=== PATIENT | female | born 1980 | race Caucasian/White ===

== ENCOUNTER 2024-02-18 12:05 | Inpatient (IN) | payer BC, SELFPAY ==
[2024-02-13 09:34] VITALS: BMI 30.6
[2024-02-18] VITALS (17 sets, daily range): BP systolic 100–135; BP diastolic 64–108; PULSE 71–103; RESP 12–26; TEMP 35.7–36.6; O2SAT 94–100; BMI 29.6; BMI 32.1
[2024-02-18] MEDS: SCOPOLAMINE 1 PATCH TOP (06:52)
[2024-02-18] MEDS: LACTATED RINGERS 1,000 ML 42 ML IV ×3 (06:54→11:05)
--- NOTE | 2024-02-18 07:45 | PM.PREOP ---
Pre-operative Note Interval Note History & Physical reviewed/Exam performed by Physician: Yes Changes to H&P: No
[2024-02-18] MEDS: CEFAZOLIN 2 GM/100 ML PREMIX 100 ML IV ×3 (08:00→23:13)
--- NOTE | 2024-02-18 08:15 | SUR.OPER ---
Prone on spine table, head in foam head support, padded chest and pelvic supports, gel pad at knees, lower legs supported by pillows; nipples, genitalia and toes free of pressure, arms secured on foam padded arm boards at <90 degrees abduction. Tape over blanket at lower legs secured to table.
[2024-02-18] MEDS: BUPIVACAINE 0.25% W/ EPI (PF) 10 ML VIAL 30 ML INJ (08:26)
--- NOTE | 2024-02-18 10:03 | DI.RAD.S_ITS ---
PROCEDURE: XR LUMBAR SPINE 2-3V INDICATIONS: L4-5 TLIF TECHNIQUE: Intraoperative fluoroscopic spot films COMPARISON: None. FINDINGS: Bones: Low resolution intraoperative fluoroscopic spot film shows L4 discectomy instrumentation in good position Soft tissues: Overlying bowel gas pattern is normal. No suspicious soft tissue calcifications. IMPRESSION: Fluoroscopic guidance Approved by: Eyal De La Cruz M.D. on 02/18/2024 at 11:27
[2024-02-18] MEDS: BUPIVACAINE LIPOSOME 266 MG/20 ML VIAL INJ (10:05)
--- NOTE | 2024-02-18 10:12 | P.OP_ITS ---
Operative Date/Time/Diagnoses Date of procedure: 02/18/24 Time of procedure: 07:40 Pre-op diagnosis: 1. L4-5 spondylolisthesis 2. L4-5, L5-S1 spinal stenosis with radiculopathy Post-op diagnosis: same Procedure & Clinicians Procedure: 1. L4-5 Postero-lateral and posterior interbody fusion 2. L4-5 interbody cage placement. 3. L4-5 decompressive laminectomy with bilateral facetecomies 4. L4-5 Posterior non-segmental instrumentation 5. L5-S1 hemilaminectomy 6. [place] of bone marrow from iliac crest 7. Utilization of microsurgical technique and operating microscope 8. Utilization of robotic assisted navigation Same procedure as scheduled: Yes Indications: Patient has been having chronic back pain and worsening lumbar radiculopathy. Patient was found have significant spondylosis with foraminal stenosis and spondylolisthesis at L4-5, spinal stenosis at L5-S1 correlating with her symptoms. Patient failed multiple conservative management with worsening pain weakness and numbness in her lower extremity. Patient has been having difficulty performing activity of daily living. After discussing risks benefits of treatment options, patient elected proceed with surgery. Surgeon: Balwinder Velasquez Hand Grinder: Lennox Amos Click Yes if Unassisted: No Anesthesia Type: General Operative Notes Closure Type: primary Specimen(s): none sent Prosthetic devices, grafts, tissues, transplants, or devices: Globus CREO MIS screws, Rise cage Estimated Blood Loss (mL): 50 Blood products transfused: none Procedure in detail: Patient was seen in the preoperative area. Risks and benefits of the surgery was discussed with the patient. Informed consent was obtained from the patient and placed in the chart. Surgical site was marked. Patient was taken to the operative room. General anesthesia was administered. Prophylactic antibiotic was given to the patient less than 30 min before the incision was made. Patient was placed into a prone position on the [place] table. Patient's back was then prepped and draped in the sterile fashion. Time-out was performed at this time. After patient was prepped and draped, patient's PSIS was palpated and marked bilaterally. Small 1 cm incision was made over the PSIS for placement of the reference probes. Two trocar was placed into the PSIS 1 on each side. The reference probe was attached to the trocar of the reference apparatus. At this time the C-arm imaging was used to confirm AP and lateral of L4-5 vertebrae and merged the C-arm imaging using the varinode robotic navigation system with the CT of the lumbar spine. After successful merging was completed and confirmed, skin marker was used to sohail out the skin incision using the varinode robotic arm. Bilateral incision was made at this time. Pre templated trajectory was used and guided using the varinode robotic navigation system for bilateral L4-5 pedicle screw placement. This was done by using the robotic arm to guide the high-speed bur to make a cortical entry point. Next a drill was placed also using the robotic arm and guided using the navigation system drilling partially through bilateral L4 and L5 pedicles. Next L4-5 pedicle screws it was pre templated and measured was placed onto the power furniture delivery driver and inserted into the pedicles bilaterally. After all 4 screws were placed C-arm imaging was taken of both AP and lateral to confirm the placement. Excellent placement of the screws were confirmed and a matched precisely with the pre planned screw placement using the navigation system. MARs retractor was inserted using Rivalfoxivation guidence. Globus MARS retractors was placed inside the incision and docked onto the L4 lamina. Using microsurgical technique and operating microscope, a L4 laminectomy and L4-5 facetectomy was performed using a [place] rongeur. Patient was found have severe lateral recess and neural foramen stenosis which was fully decompressed after the laminectomy facetectomy. More than 75% of the facets were removed during the process of decompression rendering L4-5 level grossly unstable and required a fusion procedure at the same time. The disc space at L4-5 was identified, and a total diskectomy was performed at L4-5 level. The endplates were decorticated using a rasp and shaver. The total diskectomy and decortication was performed at L4-5 level in order to to accomplish a L4-5 fusion. The local bone from the laminectomy and facetectomy was saved for local bone grafting. After the total diskectomy and decortication was completed, Viacel bone graft material was combined with local bone that was harvested earlier. At this time, a separate skin is incision was made over the iliac crest. A Jamshidi needle was inserted into the iliac crest through a separate skin incision. 5 cc of bone marrow aspiration was obtained through the separate skin incision using a Jamshidi needle from the iliac crest. The bone marrow aspiration was combined with local bone and the Viacel bone grafting material. The bone grafting material was placed into the L4-5 interbody space along with a expandable cage. The cage was expanded to its maximum height using the torque limiting screwdriver. The disc preparation as well as the cage insertion were also performed under navigation guidance. After the cage was placed, AP and lateral C-arm imaging was taken to confirm placement of the cage and excellent position was confirmed. Globus MARS retractor was inserted and docked onto the L4-5 posterolateral gutter on the right side. Using the power drill, posterior-lateral decortication was performed at L4-5 level until bleeding cortical bone was identified. The remaining bone grafting material was placed into the L4-5 posterior lateral gutter he order to accomplish posterolateral fusion at the L4- 5 level. MARS retractor was then redirected towards the L5-S1 level. Using microsurgical technique and operating microscope, L5-S1 hemilaminectomy was performed by removing the L5 lamina as well as the ligamentum flavum at the site of the hemilaminectomy. At this time the tulips were attached to the L4-5 pedicle screw shanks. After measuring the length of the rods, they were inserted into the tulips of the pedicle screws and locked in place using locking caps and torque limiting screwdriver bilaterally. Total 4 caps and 2 titanium rods was used in order to complete the posterior instrumentation construct. After all the hardware was placed, and confirmed with AP and lateral C-arm imaging, the wound was then irrigated with sterile normal saline and packed with Ray-Riky gauze for 3 min to accomplish hemostasis. After the gauze was removed the deep fascia was closed with #1 Vicryl suture. The subcutaneous layer was closed with 2-0 Vicryl. The skin was closed with skin lucila. Patient tolerated the procedure well. There were no complications. Neuro monitoring system was used to monitor patient's neurologic status throughout entire procedure. There was no disturbance of the neural monitoring signals throughout the case. The Operation could not have been safely performed without compromising the technical result or length of the procedure, without the assistance of a skilled surgical corsetier. The surgical corsetier was medically necessary for proper positioning, retraction and manipulation of instruments, proper exposure, surgical preparation, and manipulation of tissue. Complications: none Post-operative Condition: stable Disposition: PACU Plan for aftercare: Admit to inpatient hospital
[2024-02-18] MEDS: LORazepam 2 MG/ML INJ 0.5 MG IV ×2 (10:34→10:46)
[2024-02-18] MEDS: hydrOXYzine 50 MG/ML INJ 25 MG IM (10:38)
[2024-02-18] MEDS: fentaNYL 100 MCG/2 ML INJ 50 MCG IV ×2 (10:42→10:56)
[2024-02-18] MEDS: OXYCODONE IR 5 MG TABLET PO ×2 (10:45→11:04)
[2024-02-18] MEDS: HYDROMORPHONE 1 MG INJ IV ×3 (10:56→18:15)
[2024-02-18] MEDS: ACETAMINOPHEN IV 1,000 MG/100 ML VIAL 400 MG IV (10:58)
--- NOTE | 2024-02-18 11:10 | SUR.PHASEI ---
Addendum entered by Bettye Tay R.N. 02/18/24 12:06: 1145 - Patient resting peacefully on right side with eyes closed and even, unlabored breathing. Appears much more relaxed. Awakens appropriately and states pain is 10/10, but quickly falls back asleep when left alone. Original Note: PACU - Patient arrived to pacu resting peacefully, when waking patient began writhing in bed and crying. Stated pain was 10/10 every time asked. Anesthesia at bedside. Medicated per emar and anesthesiologist verbal orders. 1111 - Assisted to side with pillow between legs. Ice pack applied to back. Patient's behavior shows some pain relief, but states it is still 10/10. Patient calming and able to rest with eyes closed and even, regular breathing periodically. vital signs stable. Assisting with purewhick placement as patient states she needs to urinate. Anesthesia back at bedside (Dr. Lobo administered dose of precedex (see anesthesia documentation))
[2024-02-18] MEDS: HYDROMORPHONE 0.5 MG INJ IV ×2 (12:26→14:37)
[2024-02-18] MEDS: LACTATED RINGERS 1,000 ML 125 ML IV ×2 (12:26→16:28)
[2024-02-18] MEDS: OXYCODONE IR 10 MG TABLET PO ×4 (13:51→23:14)
[2024-02-18] MEDS: ACETAMINOPHEN 325 MG TABLET 650 MG PO ×2 (13:51→20:04)
[2024-02-18] MEDS: GABAPENTIN 300 MG CAPSULE PO ×2 (14:37→20:07)
--- NOTE | 2024-02-18 16:07 | PT-IP ANOTE ---
PT eval order received. EMR reviewed. checked with nurse and stated that pt had already taken pain meds but still c/o pain. ok for PT to work with. checked with pt and refused PT. stated that she just started getting comfortable and does not want to move or get up. pt pt agreed to do PT tomorrow.
[2024-02-18] MEDS: TIZANIDINE 4 MG TABLET 2 MG PO ×2 (16:55→23:14)
[2024-02-18] MEDS: PROGESTERONE, MICRONIZED 100 MG CAPSULE PO (16:56)
--- NOTE | 2024-02-18 18:57 | PC.NURSE ---
Day shift: Patient came up from PACU rating her pain 11/10. Crying and moaning with any movement. Then patient would promptly fall back asleep. Gave 10mg oxycodone + IV dilaudid this afternoon. Patient OOB with 1PA to [facility] to void. OOB x3 this shift. Patient states that this is extremely painful and cries, shakes and yells while ambulating. She has 4/5 strength in BLEs, no numbness or tingling, CMS +. Notified MINDY Amos regarding patient consistently rating her pain 10+ while awake. He ordered 1mg IV dilaudid. This made patient nauseous and she had small emesis after dinner. Patient had a few episodes of her oxygen de-sating while sleeping. Easily arousable and instructed her to take some deep breaths. With 2L NC while sleeping, patient's sats stayed above 93 percent. At 1830, patient resting comfortably in bed watching TV and rating her pain 5/10.
[2024-02-18] MEDS: DOCUSATE 100 MG CAPSULE PO (20:06)
[2024-02-18] MEDS: clonazePAM 0.5 MG TABLET 1 MG PO (20:07)
[2024-02-18] MEDS: SENNOSIDES 8.6 MG TABLET 17.2 MG PO (20:07)
[2024-02-18] MEDS: hydrOXYzine HCL 25 MG TABLET 50 MG PO (20:08)
[2024-02-18] MEDS: ZOLPIDEM 5 MG TABLET 10 MG PO (23:13)
[2024-02-18] MEDS: ONDANSETRON 4 MG ODT SL (23:13)
[2024-02-19 04:30] LABS: Add Manual Diff / Slide Review NO; Basophils Absolute Auto 0 /uL (0-100); Basophils Percent Auto 0.2 % (0-2); Eosinophils Absolute Auto 0 /uL (0-450); Hematocrit 34.1 % (36-46); Hemoglobin 11.7 g/dL (12.0-16.0); Lymphocytes Absolute Auto 2100 /uL (1100-4500); Lymphocytes Percent Auto 17.7 % (25-40); Mean Corpuscular HGB Conc 34.4 % (30-36); Mean Corpuscular Hemoglobin 30.5 PG (26-34); Mean Corpuscular Volume 88.7 fL (80-100); Monocytes Absolute Auto 1000 /uL (0-900); Monocytes Percent Auto 8.4 % (3-14); Neutrophils Absolute Auto 8700 /uL (1500-7000); Neutrophils Percent Auto 73.7 % (50-75); Platelet Count 282 X10^3/uL (150-400); Red Blood Cell Count 3.84 X10^6/uL (4.0-5.2); Red Cell Distribution Width 13.9 % (11.6-14.8); White Blood Cell Count 11.8 X10^3/uL (4.5-11.0)
[2024-02-19] MEDS: ACETAMINOPHEN 325 MG TABLET 650 MG PO ×2 (07:03→14:51)
[2024-02-19] MEDS: OXYCODONE IR 10 MG TABLET PO ×5 (07:04→20:36)
[2024-02-19] MEDS: hydrOXYzine HCL 25 MG TABLET 50 MG PO ×3 (07:04→20:36)
[2024-02-19] MEDS: clonazePAM 0.5 MG TABLET 1 MG PO ×2 (08:08→20:36)
[2024-02-19] MEDS: estradioL 1 MG TABLET PO (08:09)
[2024-02-19] MEDS: HYDROMORPHONE 0.5 MG INJ IV ×4 (08:09→21:57)
[2024-02-19] MEDS: ONDANSETRON 4 MG ODT SL (08:09)
[2024-02-19] MEDS: TIZANIDINE 4 MG TABLET 2 MG PO ×3 (08:09→21:57)
[2024-02-19] MEDS: DOCUSATE 100 MG CAPSULE PO ×2 (08:09→20:41)
[2024-02-19] MEDS: GABAPENTIN 300 MG CAPSULE PO ×3 (08:09→20:37)
[2024-02-19 09:35] VITALS: BP 98/51; PULSE 89; RESP 15; TEMP 36.6; O2SAT 98
--- NOTE | 2024-02-19 11:00 | PT.IIE ---
Current Diagnoses Spondylolisthesis, lumbar region (02/18/24) Spinal stenosis, lumbar region without neurogenic claudication (02/18/24) Surgery Performed Operation Date: 02/18/24 07:45 Actual Procedures p L4-5 TLIF, L5-S1 Hemilaminectomy - Balwinder Velasquez MD Surgical History (Last Updated 02/13/24 @ 10:06 by Dedra Velazquez, RN) H/O: hysterectomy History of appendectomy Hx of cholecystectomy Medical History (Last Updated 02/13/24 @ 10:24 by Dedra Velazquez, RN) Anxiety and depression Fibromyalgia History of PCOS Interstitial cystitis Physical Therapy Inpatient Evaluation/Re-Eval M1 PT/OT-IP Prior Functional Status Start: 02/19/24 07:40 Freq: NEEDED Status: Active Protocol: Document 02/19/24 10:46 MB (Rec: 02/19/24 10:59 MB [id number]) Medical Review Prior Functional Status Medical History Reviewed Yes Diet/Fluid Consistency Regular Communication WNLs Mobility and Gait I Activities of Daily Living and IADL's I, states her helped her wash her hair Social History Household Members spouse Living Arrangements House Number of Floors (Floors) Two Floors Number of Stairs To Enter/Railing? 5-6 steps to enter home without rail; bedroom is on second floor and can stay on main floor if needed Home Environment Tub/Shower Home Equipment Four Wheel Walker,Straight Cane Additional Social History Comment Pt states she cannot work d/t pain She has low toilet and gets OOB to her right M2 PT-IP Current Condition Start: 02/19/24 07:40 Freq: NEEDED Status: Active Protocol: Document 02/19/24 10:46 MB (Rec: 02/19/24 10:59 MB [id number]) Physical Therapy Current Condition Current Condition Evaluation Date 02/19/24 Treatment Diagnosis L4-5 TLIF M3 PT-IP Subjective Start: 02/19/24 07:40 Freq: NEEDED Status: Active Protocol: Document 02/19/24 10:46 MB (Rec: 02/19/24 10:59 MB [id number]) Subjective Physical Therapy Visit Type Type Initial Evaluation Visit Start Time 10:10 Visit Stop Time 10:40 Number of LICENSING AND REGISTRATION DIRECTOR Visits 0 Physical Therapy Visit Comments Patient Comments Pt reports high pain and that she is afraid of getting OOB. Therapy Pain Assessment Pain When Pain Assessed During Mobility Pain Present Pain Present Pain Reported Location low back Intensity 10 Scale Used Numeric (0 - 10) Pain Behaviors Crying Pain Management Techniques Apply Cold,Distraction, Modification of Treatment,Re- positioning,Timing of Activity with Medications M4 PT-IP Mobility and Gait Start: 02/19/24 07:40 Freq: NEEDED Status: Active Protocol: Document 02/19/24 10:46 MB (Rec: 02/19/24 10:59 MB [id number]) PT-Bed Mobility Assessment Rolling Type of Rolling Log Rolling,Roll to Right Level of Assist Standby Assistance Supine to Sit Supine to Sit Standby Assistance,1 Person Assistance,Bedrails Scooting Scooting to Edge of Bed Standby Assistance Scooting Up and Down in Bed Standby Assistance PT-Transfer Assessment Sit to and From Stand Sit to and from Stand Contact Guard Assistance,1 Person Assistance,Use of Upper Extremities Equipment Transfer Assistive Device Gait Belt,Front Wheeled Walker ,4 Wheeled Walker Orthotic/Prosthetic Devices or Brace: No Transfers Transfer Destination Bed,Toilet Transfer Technique Ambulation Transfer Ability Level of Assist Contact Guard Assistance,1 Person Assistance,Use of Upper Extremities Comments Mobility Comments Pt crying throughout mobility, ed pt in back precautions and log rolling and then she is able to perform with increased time, encouragement and tearfulness Gait Assessment Gait Gait Assistance Required: Contact Guard Assist Distance (Feet) 15 Able to Maintain Weight Bearing Status Yes During Gait Assistive Devices Assistive Device Gait Belt,Front Wheeled Walker Orthotic/Prosthetic Devices or Brace: No Gait Deviations General Gait Pattern Antalgic,Decreased Stride Length,Step-to Gait,Wide Based Gait Factors Limiting Gait Function Factors Limiting Gait Function Decreased Sensation,Limited Range of Motion,Pain,Poor Safety Awareness Comments Gait Comments Tried using pt's rollator and it is old, has old tape on wheels and moves quickly, switched to RW in room. Pt gait trains slowly and with ongoing crying and c/o pain: 15'x1 to toilet and 10'x1 to chair. Cues for hand placement with transfers and occ cues for moving walker with gait, set-up assist for hygiene after urination. PT-Balance Assessment Sitting Balance and Reactions Static Sitting Balance Ability Good Dynamic Sitting Balance Ability Fair Standing Balance and Reactions Static Standing Balance Ability Fair Dynamic Standing Balance Ability Fair Device Used RW M5 PT-IP Objective Assessments Start: 02/19/24 07:40 Freq: NEEDED Status: Active Protocol: Document 02/19/24 10:46 MB (Rec: 02/19/24 10:59 MB [id number]) Orientation Orientation/Cognition Level of Alertness Alert Orientation Name,Age,Birthday,Month,Date, Year,Day of Week,Place, Situation Language Function Ability No Deficits Noted Safety Awareness Decreased Safety Awareness Memory Description No Deficits Noted Gross Range of Motion Upper Extremity ROM Impairments Defer to OT Lower Extremity ROM Assessment Within Functional Limits Strength Comments Strength Comments Pt does not tolerate formal range or MMT and so functionally observed only and no deficits noted Coordination Assessment Assessment Coordination Comments Pt does not tolerate LE coordination testing today Sensation Assessment Comments Sensation Comments Reports of ongoing mild paresthesias in right leg Muscle Tone Muscle Tone WNL Yes M6 PT-IP Treatment Start: 02/19/24 07:40 Freq: NEEDED Status: Active Protocol: Document 02/19/24 10:46 MB (Rec: 02/19/24 10:59 MB [id number]) Physical Therapy Treatment Education Education Provided Precautions,Post-Op Packet, Safety Other Treatments Other Treatment Performed Ed in log rolling and short stepping with RW with turning, ed pt on use of incentive spirometer and gentle nasal breathing to help with pain management M7 PT-IP Assessment and Plan Start: 02/19/24 07:40 Freq: NEEDED Status: Active Protocol: Document 02/19/24 10:46 MB (Rec: 02/19/24 10:59 MB [id number]) PT Summary Assessment and Plan Potential Rehabilitation Potential Fair Status of Condition at Evaluation Evolving Summary Impairments Pain,ROM,Strength,Balance, Coordination,Bed Mobility, Transfers,Gait,Activity Tolerance Progress Towards Goals Slow Progress due to Pain Assessment Summary Pt is a 43 y/o female presenting POD1 L4-5 TLIF and her pain is poorly controlled. She reports 6/10 pain at rest and 10/10 pain with mobility despite getting pain medications and IV Dilaudid during treatment. Pt with heavy crying throughout all mobility and 20' of PT. Pt does perform all mobility tasks slowly with PT ongoing cues and encouragement despite tearfulness and high pain. She is currently CGA status. to assist at home, per her report. Stair training when pain managed enough that pt can leave the room without loud crying. Goals Bed Mobility Goal Independent Transfer Goal Independent,Front Wheeled Walker,Four Wheeled Walker Gait Goal Independent,Front Wheel Walker ,Four Wheel Walker Gait Distance 100 Other Goals Pt will ascend and descend 5 steps with cane and REVENUE TAX SPECIALIST to allow safe home entrance. Days to Meet Goals 3 Frequency of Treatment Frequency Of Treatment Twice a Day Treatment Plan Physical Therapy Treatment Plan Bed Mobility Training,Transfer Training,Gait Training, Therapeutic Exercise,Balance Retraining,Post Op Education, Discharge Planning,Hot or Cold Pack,Neuromuscular Re-ed, Coordination Retraining,Manual Therapy Precautions Lumbar Precautions Log Roll,No Twisting,Limit Bending,Lifting Restriction of 10 lbs,Gait Belt above Incisional Area Recommendations To Nursing Amount of Assist Needed 1 Person Assist Discharge Recommendations PT Discharge Recommendations Home with 16/12 Assist Available Transportation Needs at Discharge Private Vehicle,Wheelchair/ Cabulance
--- NOTE | 2024-02-19 12:27 | P.PN_ITS ---
Subjective Subjective Date Patient Seen: 02/19/24 Time Patient Seen: 12:27 Interval history: Patient states she is having difficulty getting pain under control. She is worked with physical therapy and was difficult for. She has been able to ambulate small distances to the bedside commode and to the bathroom. She did not feel ready the go home today. Pain is localized along the incision site. No new numbness or tingling. No nausea vomiting fevers or chills. Exam Vital Signs (past 8 hours): - 02/19/24 09:35 Temperature 97.9 F Pulse Rate 89 Respiratory Rate 15 Blood Pressure 98/51 L Pulse Oximetry 98 Oxygen Delivery Method Nasal Cannula Oxygen Flow Rate 0 Narrative Exam Narrative: pt found sitting in bed having lunch. She appears to be uncomfortable, shifting in bed. SCDs around. Able to dorsiflex and plantar flex against resistance bilateral ankles. Sensation intact to light touch of the lower extremities. Resp Effort & Inspection: normal respiratory effort and able to speak in complete sentences Objective Labs 02/19/24 04:07 Labs: Laboratory Results - last 24 hr 02/19/24 04:07 WBC 11.8 H RBC 3.84 L Hgb 11.7 L Hct 34.1 L MCV 88.7 MCH 30.5 MCHC 34.4 RDW 13.9 Plt Count 282 Neut % (Auto) 73.7 Lymph % (Auto) 17.7 L [place] % (Auto) 8.4 Eos % (Auto) 0.0 L Baso % (Auto) 0.2 Neut # (Auto) 8700 H Lymph # (Auto) 2100 [place] # (Auto) 1000 H Eos # (Auto) 0 Baso # (Auto) 0 PFSH Medical History (Updated 02/13/24 @ 10:24 by Dedra Velazquez RN) Anxiety and depression History of PCOS Interstitial cystitis Fibromyalgia Surgical History (Updated 02/13/24 @ 10:06 by Dedra Velazquez RN) Hx of cholecystectomy History of appendectomy H/O: hysterectomy Social History household members: spouse Smoking Status: Never smoker alcohol intake: current Assessment & Plan Post-op Postoperative Procedures: Procedures Operation Date: 02/18/24 07:45 Actual Procedure Side Surgeon p L4-5 TLIF, L5-S1 Hemilaminectomy Balwinder Velasquez MD Postoperative day: 1 Postoperative status: marginal pain control Postoperative plan: routine post-op care and ambulate Postoperative plan narrative: Ambulate with physical therapy. Multimodal pain control. SCDs on while resting for DVT prevention. Re-evaluate tomorrow to see if she is a candidate for discharge to home. Time Spent With Patient Time with patient: less than 15 minutes Quality VTE Deep Vein Thrombosis/Pulmonary Embolism Present on Admission: No
--- NOTE | 2024-02-19 14:49 | PT.IPTN ---
Current Diagnoses Spondylolisthesis, lumbar region (02/18/24) Spinal stenosis, lumbar region without neurogenic claudication (02/18/24) Surgery Performed Operation Date: 02/18/24 07:45 Actual Procedures p L4-5 TLIF, L5-S1 Hemilaminectomy - Balwinder Velasquez MD Physical Therapy Treatment Note M2 PT-IP Current Condition Start: 02/19/24 07:40 Freq: NEEDED Status: Active Protocol: Document 02/19/24 10:46 MB (Rec: 02/19/24 10:59 MB [id number]) Physical Therapy Current Condition Current Condition Evaluation Date 02/19/24 Treatment Diagnosis L4-5 TLIF M3 PT-IP Subjective Start: 02/19/24 07:40 Freq: NEEDED Status: Active Protocol: Document 02/19/24 15:21 TS (Rec: 02/19/24 15:39 TS [id number]) Subjective Physical Therapy Visit Type Type Treatment Note Visit Start Time 14:49 Visit Stop Time 15:20 Number of [employer] Visits 1 Physical Therapy Visit Comments Patient Comments Pt found resting in bed, reports high pain, she is agreeable to PT. Therapy Pain Assessment Pain When Pain Assessed During Mobility Pain Present Pain Present Pain Reported M4 PT-IP Mobility and Gait Start: 02/19/24 07:40 Freq: NEEDED Status: Active Protocol: Document 02/19/24 15:21 TS (Rec: 02/19/24 15:39 TS [id number]) PT-Bed Mobility Assessment Rolling Type of Rolling Log Rolling,Roll to Right Level of Assist Standby Assistance Supine to Sit Supine to Sit Standby Assistance,1 Person Assistance,Bedrails Sit to Supine Sit to Supine Contact Guard Assistance Scooting Scooting to Edge of Bed Standby Assistance Scooting Up and Down in Bed Standby Assistance PT-Transfer Assessment Sit to and From Stand Sit to and from Stand Contact Guard Assistance,1 Person Assistance,Use of Upper Extremities Equipment Transfer Assistive Device Gait Belt,4 Wheeled Walker Orthotic/Prosthetic Devices or Brace: No Comments Mobility Comments Pt continues to cry due to pain throughout all mobility. She performs bed mobility SBA with good recall of her precautions. Caregiver training initiated. Spouse dons gait belt prior to mobility. STS with FWW CGA, pt calls out in pain. She ambulates ~20' in the room with 4WW CGA. Pt sat on toilet and performs own pericare with spouse assist. She ambulates back to the bed. Sit to supine into bed Milagros with cues for sequencing. Pt was left in the bed, all needs met . Gait Assessment Gait Gait Assistance Required: Minimum Assistance Distance (Feet) 20 Able to Maintain Weight Bearing Status Yes During Gait Assistive Devices Assistive Device Gait Belt,Front Wheeled Walker Orthotic/Prosthetic Devices or Brace: No Gait Deviations General Gait Pattern Antalgic,Decreased Stride Length,Step-to Gait,Wide Based Gait Factors Limiting Gait Function Factors Limiting Gait Function Decreased Sensation,Limited Range of Motion,Pain,Poor Safety Awareness PT-Balance Assessment Sitting Balance and Reactions Static Sitting Balance Ability Good Dynamic Sitting Balance Ability Fair Standing Balance and Reactions Static Standing Balance Ability Fair Dynamic Standing Balance Ability Fair Device Used FWW M5 PT-IP Objective Assessments Start: 02/19/24 07:40 Freq: NEEDED Status: Active Protocol: Document 02/19/24 10:46 MB (Rec: 02/19/24 10:59 MB [id number]) Orientation Orientation/Cognition Level of Alertness Alert Orientation Name,Age,Birthday,Month,Date, Year,Day of Week,Place, Situation Language Function Ability No Deficits Noted Safety Awareness Decreased Safety Awareness Memory Description No Deficits Noted Gross Range of Motion Upper Extremity ROM Impairments Defer to OT Lower Extremity ROM Assessment Within Functional Limits Strength Comments Strength Comments Pt does not tolerate formal range or MMT and so functionally observed only and no deficits noted Coordination Assessment Assessment Coordination Comments Pt does not tolerate LE coordination testing today Sensation Assessment Comments Sensation Comments Reports of ongoing mild paresthesias in right leg Muscle Tone Muscle Tone WNL Yes M6 PT-IP Treatment Start: 02/19/24 07:40 Freq: NEEDED Status: Active Protocol: Document 02/19/24 15:21 TS (Rec: 02/19/24 15:39 TS [id number]) Physical Therapy Treatment Education Education Provided Precautions,Post-Op Packet, Safety Other Treatments Other Treatment Performed Ed in log rolling and short stepping with RW with turning, ed pt on use of incentive spirometer and gentle nasal breathing to help with pain management M7 PT-IP Assessment and Plan Start: 02/19/24 07:40 Freq: NEEDED Status: Active Protocol: Document 02/19/24 15:21 TS (Rec: 02/19/24 15:39 TS [id number]) PT Summary Assessment and Plan Potential Rehabilitation Potential Fair Summary Impairments Pain,ROM,Strength,Balance, Coordination,Bed Mobility, Transfers,Gait,Activity Tolerance Progress Towards Goals Slow Progress due to Pain Assessment Summary Annabella continues to be limited in her mobility by pain. She is SBA/CGA for bed mobility. She ambulates short distances in the room with use of 4WW. She has severe pain with all mobility and calls out. She has 5 steps to get into the house in the fron. She will need to complete stair training to safely get into the house. PT is recommending Home vs SNF. Goals Bed Mobility Goal Independent Transfer Goal Independent,Front Wheeled Walker,Four Wheeled Walker Gait Goal Independent,Front Wheel Walker ,Four Wheel Walker Gait Distance 100 Other Goals Pt will ascend and descend 5 steps with cane and CHANNEL MANAGER to allow safe home entrance. Days to Meet Goals 3 Frequency of Treatment Frequency Of Treatment Twice a Day Treatment Plan Physical Therapy Treatment Plan Bed Mobility Training,Transfer Training,Gait Training, Therapeutic Exercise,Balance Retraining,Post Op Education, Discharge Planning,Hot or Cold Pack,Neuromuscular Re-ed, Coordination Retraining,Manual Therapy Precautions Lumbar Precautions Log Roll,No Twisting,Limit Bending,Lifting Restriction of 10 lbs,Gait Belt above Incisional Area Recommendations To Nursing Amount of Assist Needed 1 Person Assist Discharge Recommendations PT Discharge Recommendations Home with 16/12 Assist Available,SNF Rehab,Home vs SNF Transportation Needs at Discharge Private Vehicle,Wheelchair/ Cabulance
--- NOTE | 2024-02-19 15:11 | CM.DANOTE ---
Addendum entered by DEL Geiger 02/19/24 15:45: ADD: SW met bedside with pt and spouse and explained role and they confirm they live at home and pt was working and independent leading up to her surgery but stopped working due to pain and her upcoming surgery. Spouse states he can assist through Friday but he started a new job and is not able to take additional time off and they deny any other local family or friends who can assist. Pt and spouse hopeful for better pain management for d/c to home. Pt denies any hx of DME use or utilizing HH or SNF. SW discussed if pt unable to safely d/c home the other option would be SNF if her insurance approves. Pt very hopeful not to go to SNF and motivated for home but having pain of 5 when not moving and 10-11 when moving. Plan: SW to follow closely for further PT/OT in the AM and better pain control for hopeful d/c to home with spouse. DEL Geiger Original Note: Patient is a 43 yo female who was admitted [facility] on [place]18/[place] for TLIF. Pt has [employer] for insurance and her PCP is Erick De La Torre. EMR was reviewed. Per Ortho PA, pt tolerated procedure well but due to pain at baseline and management issues likely her another 1-2 days pending progress with PT/OT. Per PT/OT, pt very tearful but able to participate but has pain issues but recommending home with spouse 16/12 assist when stable. SW attempted bedside assessment but pt currently working with PT/OT and very tearful. Plan: SW to follow for bedside assessment to confirm safe d/c home with spouse when stable. DEL Geiger Discharge Planning/Care Management CM Discharge Assessment Start: 02/19/24 15:08 Freq: Status: Active Protocol: Document 02/19/24 15:08 BF (Rec: 02/19/24 15:11 BF [id number]) Discharge Planning Assessment Assigned It Project Manager DEL Akbar DPOA/Assigned Designee Name informally spouse Gualberto Contact Information [phone] Advance Directives? No Advance Directives on File No History Provided By Patient,Significant Other, Medical Record Has Patient been admitted in last 30 No days? Prior Living Arrangements House Household Members spouse Type of transporation used prior to Drives own vehicle admit Independent with ADL's Yes Is patient alert and oriented? Yes Caregiver for Another No Community Services used prior to Physical Therapy admission: DME Already Rented / Owned FWW / Walker Patient/Family Preference OP PT Therapy Barriers to Discharge No Comment Mostly pain mngmt issues Discharge Plan Home Community Services Physical Therapy Transportation Arrangement Spouse bedside and plans to transport at d/c Referrals Initiated None needed Whiteboard Updated in Patient Room with Yes name and ext. # of It Project Manager Review Status In Process Please Provide Date Initial DC 02/19/24 Assessment Was Performed Next Review Type Continued Stay Review Pre-Anesthesia Assessment Start: 02/13/24 09:34 Freq: Status: Complete Protocol: Document 02/13/24 09:34 LB (Rec: 02/13/24 10:20 LB [id number]) Pre-Anesthesia Assessment Patient Information Reviewed Via Phone Assessment Assessment Completed With Patient Diagnostic Results BMP/CMP,CBC Comment 02-02-24 outside labs Primary Care Provider Erick De La Torre Seen Specialist in Last 12 Months Yes Specialist Seen Orthopedist Primary Language Tajik Preferred Language Tajik Project/Production Manager Imaging Required No Height 154.94 cm Weight 73.482 kg Body Mass Index (BMI) 30.6 Hearing Ability Normal Visual Assist Glasses Dentition Type Teeth, Natural Present Barriers to Learning None Other Aids No Hx Anesthesia Reactions No Hx Family Anesthesia Reaction No Hx Malignant Hyperthermia No Hx Blood Transfusions No Anesthesia Review Requested No Canteen Attendant No alcohol intake current alcohol intake frequency holidays/special occasions only Smoking Status Never smoker Substance Use Type marijuana Pain Present Pain Reported Comment back pain into legs. Musculoskeletal Symptoms Back Pain,Difficulty Walking, Muscle Weakness,Neck Pain, Numbness,Radiating Pain into Limb,Tingling History of Falling (Recent or History of Yes ) Comment A few months ago, I fell down the stairs Patient is completely paralyzed or No completely immobile Prosthesis or Orthotic Device Cane,Front Wheel Walker Mental Status Oriented to own ability Comment will bring cane and walker. Is patient on oxygen? No Does patient have DICK/SOB No Hx Sleep Apnea No CPAP/BIPAP use not prescribed Currently Taking a Beta Brunilda No Can You Climb a Flight of Stairs Without Yes SOB Hx Chest Pain No Hx SOB No Hx Syncope or Dizziness No Anti-Coagulant Therapy No Cardiac Testing No Hx Pacemaker/ICD No Dysphagia No Bladder Pattern Incontinent, Stress Urinary Catheter Present No Hx Urinary Self Catheterization No Diabetes No Patient No Lactating No Hx Drug Resistant Organism No Presence of External or Internal Medical No Devices Have you had any close contact with No someone diagnosed with COVID-19? Are you experiencing any of these No symptoms symptoms? Marital Status Lives With spouse Current Living Arrangements House Number of Floors (Floors) Two Floors Number of Stairs To Enter/Railing? 3 or 4 steps without railing to enter home. Support System Spouse Does the Patient Have Assistance After Yes Surgery Patient Discharge Plan Description Return Home Feels Safe in Current Environment Yes Do you have a plan to hurt yourself or No Plan others? Do You Have Any Spiritual Beliefs That No May Affect Your HC Choices? Do You Have Any Cultural Practices That No May Affect Your HC Choices? Who Can We Speak to About Patient's Care Family/friends Health Care Proxy/Next of Kin Gualberto eHlms - Health Care Proxy Emergency Contact Name Gualberto Helms - Emergency Contact Advance Directives? No PAC Instructions Assistance for 24 hours post- op,Durable medical equipment, Medications to take/avoid, Nasal antibiotic,No ETOH/ petroleum product on skin DOS, NPO,Pre-surgical wash,Sturdy shoes/comfortable clothes,Do not bring valuables and remove jewelry
--- NOTE | 2024-02-19 15:21 | OT.IP.EVAL ---
Current Diagnoses Spondylolisthesis, lumbar region (02/18/24) Spinal stenosis, lumbar region without neurogenic claudication (02/18/24) Surgery Performed Operation Date: 02/18/24 07:45 Actual Procedures p L4-5 TLIF, L5-S1 Hemilaminectomy - Balwinder Velasquez MD Past Medical History (Last Updated 02/13/24 @ 10:24 by Dedra Velazquez, RN) Anxiety and depression Fibromyalgia History of PCOS Interstitial cystitis Surgical History (Last Updated 02/13/24 @ 10:06 by Dedra Velazquez, RN) H/O: hysterectomy History of appendectomy Hx of cholecystectomy Occupational Therapy Inpatient Evaluation/Re-Eval M1 PT/OT-IP Prior Functional Status Start: 02/19/24 07:40 Freq: NEEDED Status: Active Protocol: Document 02/19/24 15:22 [facility] (Rec: 02/19/24 15:53 [facility] [id number]) Medical Review Prior Functional Status Medical History Reviewed Yes Diet/Fluid Consistency Regular Communication WNLs Mobility and Gait I Activities of Daily Living and IADL's I, states her helped her wash her hair Social History Household Members spouse Living Arrangements House Number of Floors (Floors) One Floor Number of Stairs To Enter/Railing? 2 steps or 5 steps with no rails for either steps. Home Environment Tub/Shower Home Equipment Four Wheel Walker,Straight Cane Additional Social History Comment Pt states she cannot work d/t pain She has low toilet and gets OOB to her right M2 OT-IP Current Condition Start: 02/19/24 15:21 Freq: Status: Active Protocol: Document 02/19/24 15:22 [facility] (Rec: 02/19/24 15:53 [facility] [id number]) Occupational Therapy Current Condition Current Condition Evaluation Date 02/19/24 Treatment Diagnosis S/P L4-5 TLIF, L5-S1 hemilaminectomy Diagnosis Onset Date 02/18/24 M3 OT- IP Subjective and Pain Start: 02/19/24 15:21 Freq: Status: Active Protocol: Document 02/19/24 15:22 [facility] (Rec: 02/19/24 15:53 [facility] [id number]) OT- Subjective Occupational Therapy Visit Type Type Initial Evaluation Visit Start Time 14:49 Visit Stop Time 15:21 Occupational Therapy Visit Comments Patient Comments Pt agreed to get up. Patient/Caregiver Goals To go home. OT Pain Assessment Pain When Pain Assessed During Mobility Pain Present Pain Present Pain Reported Location low back Intensity 10 Scale Used Numeric (0 - 10) Pain Behaviors Calling Out,Crying,Facial Grimacing,Holding Area,Moaning ,Wincing M4 OT- IP ADL's Start: 02/19/24 15:21 Freq: Status: Active Protocol: Document 02/19/24 15:22 [facility] (Rec: 02/19/24 15:53 [facility] [id number]) OT [id number] Comments OT Self-Feeding Comments Not at meal time. NO issues anticipated. OT ADL-Grooming Comments OT Grooming Comments Not performed. OT ADL-Oral Care Comments Oral Care Comments Not performed. OT ADL-Dressing General Eval Lower Body Dressing Ability Maximum Assistance Areas Needing Assistance Socks OT ADL-Toileting General Evaluation Toileting Ability Maximum Assistance Comments OT Toileting Comments Pt will need assist for hygiene after a bowel movement .Educated of toilet paper aid, wet ones, use of pads, or have assist. OT ADL-Bathing Comments OT Bathing Comments Pt will benefit from a tub bench for home use. M5 OT- IP IADL's Start: 02/19/24 15:21 Freq: Status: Active Protocol: Document 02/19/24 15:22 [facility] (Rec: 02/19/24 15:53 [facility] [id number]) OT-Instrumental Activities of Daily Living Deficits IADL Deficits Identified Deficits Home Safety Awareness Awareness of Need for Assistance at Home Good Awareness Home Safety Comments Pt has a supportive to assist her until Friday. M6 OT- IP Functional Cognition Start: 02/19/24 15:21 Freq: Status: Active Protocol: Document 02/19/24 15:22 [facility] (Rec: 02/19/24 15:53 [facility] [id number]) Cognitive Factors Limiting Selfcare Function Cognitive Ability Level of Alertness Alert Patient Orientation Name,Age,Birthday,Month,Date, Year,Day of Week,Place, Situation Attention Span Ability Capable of Focused Attention, Capable of Sustained Attention Ability to Follow Commands Able to Follow One Step Commands Cognitive Comments Cognitive Assessment Comments Pt very tearful and crying out with pain during OT eval and needing lots of encouragement. OT- Vision and Hearing OT- Hearing Assessment OT- Hearing Assessment WFL M7 OT- IP Mobility and Balance Start: 02/19/24 15:21 Freq: Status: Active Protocol: Document 02/19/24 15:22 [facility] (Rec: 02/19/24 15:53 [facility] [id number]) OT- Bed Mobility Assessment Supine to Sit Supine to Sit Assist Standby Assistance Sit to Supine Sit to Supine Assist Minimal Assistance,1 Person Assistance OT-Transfer Assessment Sit to and From Stand Sit to and from Stand Contact Guard Assistance Transfers Transfer Ability Contact Guard Assistance Technique Transfer Destination Bed,Toilet Transfer Technique Stand Step Pivot Devices Transfer Assistive Devices Gait Belt,Front Wheeled Walker Comments Mobility Comments CGA to PAOLA for bed mobility needs but has lots of pain and may benefit from sleeping in a recliner initially. CGA to SBA with FWW and transfers. OT- Balance Assessment Sitting Balance and Reactions Static Sitting Balance Ability Good Dynamic Sitting Balance Ability Good Standing Balance and Reactions Static Standing Balance Ability Good Dynamic Standing Balance Ability Fair M8 OT- IP Objective Assessments Start: 02/19/24 15:21 Freq: Status: Active Protocol: Document 02/19/24 15:22 [facility] (Rec: 02/19/24 15:53 [facility] [id number]) OT Gross Range of Motion Upper Extremity Range of Motion Assessment Within Functional Limits OT Strength Upper Extremity Strength Assessment Within Functional Limits M9 OT- IP Assessment and Plan Start: 02/19/24 15:21 Freq: Status: Active Protocol: Document 02/19/24 15:22 [facility] (Rec: 02/19/24 15:53 [facility] [id number]) OT Summary Assessment and Plan Potential Rehabilitation Potential Good Analytic Complexity at Evaluation Low Summary OT Impairments Pain,Strength,Balance, Functional Mobility,Grooming, Dressing,Toileting,Bathing, Toilet Transfers,Shower Transfers,Activity Tolerance Progress Towards Goals Slow Progress due to Pain,Slow Progress due to Medical Issues,Slow Progress due to Activity Tolerance Assessment Summary Pt LOW complexity with main barriers of steps and extensive pain when up on her feet. Pt looking to go home when medically stable. However pending pain and ability to do steps safely may need short skilled rehab stay. Goals Grooming Goal Independent Dressing Goal Minimal Assistance Toileting Goal Minimal Assistance Bathing Goal Minimal Assistance Toilet Transfer Goal Independent Shower Transfer Goal Standby Assistance Days to Meet Goals 7 Frequency of Treatment Other frequency 5x/week Treatment Plan OT Treatment Plan ADL Training,Functional Mobility,Patient/Family Education,Discharge Planning Other Treatment Recommendations and Next Standng ADL's. Treatment Focus Discharge Recommendations OT Discharge Recommendations Home with 16/12 Assist Available,Home Health,SNF Rehab,Home vs SNF Home Equipment Needs Toilet paper aid, tub bench, HHSP, BSC Transportation Needs at Discharge Private Vehicle,Wheelchair/ Cabulance
[2024-02-19] MEDS: PROGESTERONE, MICRONIZED 100 MG CAPSULE PO (16:09)
[2024-02-19 20:00] VITALS: BP 89/49; PULSE 97; RESP 16; TEMP 36.7; O2SAT 97
[2024-02-19] MEDS: SENNOSIDES 8.6 MG TABLET 17.2 MG PO (20:36)
[2024-02-19] MEDS: LACTATED RINGERS 500 ML 1000 ML IV (20:37)
[2024-02-19 21:24] VITALS: BP 96/59
[2024-02-19] MEDS: ZOLPIDEM 5 MG TABLET 10 MG PO (21:57)
[2024-02-20] MEDS: HYDROMORPHONE 0.5 MG INJ IV ×3 (06:24→12:55)
[2024-02-20] MEDS: OXYCODONE IR 10 MG TABLET PO ×5 (06:38→20:22)
[2024-02-20] MEDS: hydrOXYzine HCL 25 MG TABLET 50 MG PO ×2 (06:39→14:20)
[2024-02-20 07:46] VITALS: BP 113/73; PULSE 116; RESP 19; TEMP 36.6; O2SAT 98
[2024-02-20] MEDS: DOCUSATE 100 MG CAPSULE PO ×2 (07:51→20:23)
[2024-02-20] MEDS: TIZANIDINE 4 MG TABLET 2 MG PO ×2 (07:51→20:23)
[2024-02-20] MEDS: GABAPENTIN 300 MG CAPSULE PO ×3 (07:51→20:24)
[2024-02-20] MEDS: clonazePAM 0.5 MG TABLET 1 MG PO ×2 (07:52→20:24)
[2024-02-20] MEDS: estradioL 1 MG TABLET PO (07:53)
--- NOTE | 2024-02-20 08:53 | PT.IPTN ---
Current Diagnoses Spondylolisthesis, lumbar region (02/18/24) Spinal stenosis, lumbar region without neurogenic claudication (02/18/24) Surgery Performed Operation Date: 02/18/24 07:45 Actual Procedures p L4-5 TLIF, L5-S1 Hemilaminectomy - Balwinder Velasquez MD Physical Therapy Treatment Note M2 PT-IP Current Condition Start: 02/19/24 07:40 Freq: NEEDED Status: Active Protocol: Document 02/19/24 10:46 MB (Rec: 02/19/24 10:59 MB [id number]) Physical Therapy Current Condition Current Condition Evaluation Date 02/19/24 Treatment Diagnosis L4-5 TLIF M3 PT-IP Subjective Start: 02/19/24 07:40 Freq: NEEDED Status: Active Protocol: Document 02/20/24 09:21 TS (Rec: 02/20/24 09:36 TS [id number]) Subjective Physical Therapy Visit Type Type Treatment Note Visit Start Time 08:53 Visit Stop Time 09:19 Number of INTERIOR SPECIALIST Visits 2 Physical Therapy Visit Comments Patient Comments Pt reports high pain currently , is fearful to move but willing to participate with PT . Therapy Pain Assessment Pain When Pain Assessed During Mobility Pain Present Pain Present Pain Reported Location low back Intensity 10 Scale Used Numeric (0 - 10) Description Aching Pain Management Techniques Apply Cold,Distraction, Modification of Treatment,Re- positioning,Timing of Activity with Medications M4 PT-IP Mobility and Gait Start: 02/19/24 07:40 Freq: NEEDED Status: Active Protocol: Document 02/20/24 09:21 TS (Rec: 02/20/24 09:36 TS [id number]) PT-Bed Mobility Assessment Rolling Type of Rolling Log Rolling,Roll to Right Level of Assist Standby Assistance Supine to Sit Supine to Sit Contact Guard Assistance,1 Person Assistance,Bedrails Sit to Supine Sit to Supine Contact Guard Assistance Scooting Scooting to Edge of Bed Standby Assistance Scooting Up and Down in Bed Standby Assistance PT-Transfer Assessment Sit to and From Stand Sit to and from Stand Contact Guard Assistance,1 Person Assistance Equipment Transfer Assistive Device Gait Belt,4 Wheeled Walker Orthotic/Prosthetic Devices or Brace: No Comments Mobility Comments Logroll to R side SBA with use of bed rails, pt demonstrates good recall. Supine to sit CGA, pt calls out in pain. She scoots to EOB with slow movements and holding onto to 4WW. STS with 4WW CGA, pt continues to call out. She ambulates with a slow step to gait with 4WW, spouse assists pt onto toilet. STS from toilet CGA from spouse. She ambulates back to the bed.Sit to supine into bed CGA. Pt was left in bed, all needs met. Gait Assessment Gait Gait Assistance Required: Contact Guard Assist Distance (Feet) 20 Assistive Devices Assistive Device Gait Belt,Front Wheeled Walker Orthotic/Prosthetic Devices or Brace: No Gait Deviations General Gait Pattern Antalgic,Decreased Stride Length,Step-to Gait,Wide Based Gait Factors Limiting Gait Function Factors Limiting Gait Function Decreased Sensation,Decreased Strength,Limited Range of Motion,Pain,Poor Safety Awareness PT-Balance Assessment Sitting Balance and Reactions Static Sitting Balance Ability Good Dynamic Sitting Balance Ability Good Standing Balance and Reactions Static Standing Balance Ability Good Dynamic Standing Balance Ability Fair Device Used FWW M5 PT-IP Objective Assessments Start: 02/19/24 07:40 Freq: NEEDED Status: Active Protocol: Document 02/19/24 10:46 MB (Rec: 02/19/24 10:59 MB [id number]) Orientation Orientation/Cognition Level of Alertness Alert Orientation Name,Age,Birthday,Month,Date, Year,Day of Week,Place, Situation Language Function Ability No Deficits Noted Safety Awareness Decreased Safety Awareness Memory Description No Deficits Noted Gross Range of Motion Upper Extremity ROM Impairments Defer to OT Lower Extremity ROM Assessment Within Functional Limits Strength Comments Strength Comments Pt does not tolerate formal range or MMT and so functionally observed only and no deficits noted Coordination Assessment Assessment Coordination Comments Pt does not tolerate LE coordination testing today Sensation Assessment Comments Sensation Comments Reports of ongoing mild paresthesias in right leg Muscle Tone Muscle Tone WNL Yes M6 PT-IP Treatment Start: 02/19/24 07:40 Freq: NEEDED Status: Active Protocol: Document 02/20/24 09:21 TS (Rec: 02/20/24 09:36 TS [id number]) Physical Therapy Treatment Education Education Provided Precautions,Post-Op Packet, Safety M7 PT-IP Assessment and Plan Start: 02/19/24 07:40 Freq: NEEDED Status: Active Protocol: Document 02/20/24 09:21 TS (Rec: 02/20/24 09:36 TS [id number]) PT Summary Assessment and Plan Potential Rehabilitation Potential Fair Summary Impairments Pain,ROM,Strength,Balance, Coordination,Bed Mobility, Transfers,Gait,Activity Tolerance Progress Towards Goals Slow Progress due to Pain Assessment Summary Annabella continues to be limited in her mobility due to pain. She is CGA/SBA for most bed mobility, requires Milagros for LE 's into bed. She demonstrates good awareness of her spinal precautions and carryover of mobility techniques. She continues to ambulate short distances in the room with her 4WW. Spouse has been present during treatments and caregiver training has been initiated. She will need to complete 5 steps to get into her house. PT is recommending home with 24/7 assist. Goals Bed Mobility Goal Independent Transfer Goal Independent,Front Wheeled Walker,Four Wheeled Walker Gait Goal Independent,Front Wheel Walker ,Four Wheel Walker Gait Distance 100 Other Goals Pt will ascend and descend 5 steps with cane and BACK OFFICE MEDICAL ASSISTANT to allow safe home entrance. Days to Meet Goals 3 Frequency of Treatment Frequency Of Treatment Twice a Day Treatment Plan Physical Therapy Treatment Plan Bed Mobility Training,Transfer Training,Gait Training, Therapeutic Exercise,Balance Retraining,Post Op Education, Discharge Planning,Hot or Cold Pack,Neuromuscular Re-ed, Coordination Retraining,Manual Therapy Precautions Lumbar Precautions Log Roll,No Twisting,Limit Bending,Lifting Restriction of 10 lbs,Gait Belt above Incisional Area Discharge Recommendations PT Discharge Recommendations Home with 24/7 Assist Available Transportation Needs at Discharge Private Vehicle
--- NOTE | 2024-02-20 10:49 | PM.PNPO.1 ---
Subjective Subjective Interval history: Annabella is a pleasant 43 year old female who is POD#2 s/p L4-5 Postero-lateral and posterior interbody fusion w/ cage placement and L5-S1 hemilaminectomy. This morning patient reports that she is doing slightly better than last night but is still having poorly controlled pain. She does not feel ready to d/c to home yet d/t her struggles w/ getting pain under control at this time. Pain does not radiate, not burning or shocking. Pain is localized around the incision site. She lives at home w/ her who is willing and able to aid in her post-op care, they have 2 steps up into the house but she can stay in the guest bedroom on the first floor while she recovers so she does not have to do steps within the home. She has a walker already. Denies fever, chills, chest pain, SOB, nausea, vomiting. Exam Vital Signs (past 8 hours): - 02/20/24 07:46 Temperature 98 F Pulse Rate 116 H Respiratory Rate 19 Blood Pressure 113/73 Pulse Oximetry 98 Oxygen Flow Rate 0 Oxygen Delivery Method Nasal Cannula Oxygen Flow Rate 0 Narrative Exam Narrative: Patient lying comfortably in bed during our interview today. No acute distress. AOx3. 4/5 strength with DF, PF, EHL bilaterally. Gross sensation intact throughout bilateral lower extremities. Calves soft and non-tender bilaterally. SCDs are on and functioning. Brisk capillary refill, pulses intact. Post-surgical dressing clean, dry and intact over the lumbar spine without drainage. Objective Labs 02/19/24 04:07 [facility] Medical History (Updated 02/13/24 @ 10:24 by Dedra Velazquez RN) Anxiety and depression History of PCOS Interstitial cystitis Fibromyalgia Surgical History (Updated 02/13/24 @ 10:06 by Dedra Velazquez RN) Hx of cholecystectomy History of appendectomy H/O: hysterectomy Social History household members: spouse Smoking Status: Never smoker alcohol intake: current Assessment & Plan Post-op Postoperative Procedures: Procedures Operation Date: 02/18/24 07:45 Actual Procedure Side Surgeon p L4-5 TLIF, L5-S1 Hemilaminectomy Balwinder Velasquez MD Postoperative plan narrative: 1) Plan to discharge to home, likely tomorrow pending PT evaluation. 2) Continue multimodal pain management, will not make any adjustment to her medications at this time. Discussed pain expectations w/ patient. 3) Mechanical DVT prophylaxis. 4) Maintain BLT restrictions. 5) Keep dressing intact, clean, dry until 2 week postop appointment. No soaking the incision site in pools or tubs. No topical ointments or creams to the incision site. 6) Follow up at [facility] orthopedics in 2 weeks for a postop appointment and wound check. All patient's questions were answered, they demonstrates understanding and are in agreement with the plan. Call our office if any questions or concerns arise. Quality VTE Deep Vein Thrombosis/Pulmonary Embolism Present on Admission: No
--- NOTE | 2024-02-20 12:18 | OT.IP.TRT ---
Current Diagnoses Spondylolisthesis, lumbar region (02/18/24) Spinal stenosis, lumbar region without neurogenic claudication (02/18/24) Surgery Performed Operation Date: 02/18/24 07:45 Actual Procedures p L4-5 TLIF, L5-S1 Hemilaminectomy - Balwinder Velasquez MD Occupational Therapy Treatment Note M2 OT-IP Current Condition Start: 02/19/24 15:21 Freq: Status: Active Protocol: Document 02/19/24 15:22 [facility] (Rec: 02/19/24 15:53 [facility] [id number]) Occupational Therapy Current Condition Current Condition Evaluation Date 02/19/24 Treatment Diagnosis S/P L4-5 TLIF, L5-S1 hemilaminectomy Diagnosis Onset Date 02/18/24 M3 OT- IP Subjective and Pain Start: 02/19/24 15:21 Freq: Status: Active Protocol: Document 02/20/24 12:18 [facility] (Rec: 02/20/24 12:26 [facility] [id number]) OT- Subjective Occupational Therapy Visit Type Type Treatment Note Visit Start Time 12:10 Visit Stop Time 12:18 Occupational Therapy Visit Comments Patient Comments Pt not wanting to get up as in too much pain. Patient/Caregiver Goals TO go home. OT Pain Assessment Pain When Pain Assessed At Rest Pain Present Pain Present Pain Reported Location low back Pain Behaviors Crying,Facial Grimacing, Holding Area,Wincing M4 OT- IP ADL's Start: 02/19/24 15:21 Freq: Status: Active Protocol: Document 02/20/24 12:18 [facility] (Rec: 02/20/24 12:26 [facility] [id number]) OT ADL-Dressing Comments OT Dressing Comments Talked about use of loose clothing for dressing needs, use of pads/brief at night and wet-one and may benefit from a BSC. OT ADL-Toileting Comments OT Toileting Comments Would benefit from a BSC. OT ADL-Bathing Comments OT Bathing Comments Pt refusing to shower today but agreed to try before going home. At this time best to get a tub bench and HHSP. M5 OT- IP IADL's Start: 02/19/24 15:21 Freq: Status: Active Protocol: Document 02/19/24 15:22 [facility] (Rec: 02/19/24 15:53 [facility] [id number]) OT-Instrumental Activities of Daily Living Deficits IADL Deficits Identified Deficits Home Safety Awareness Awareness of Need for Assistance at Home Good Awareness Home Safety Comments Pt has a supportive to assist her until Friday. M6 OT- IP Functional Cognition Start: 02/19/24 15:21 Freq: Status: Active Protocol: Document 02/20/24 12:18 [facility] (Rec: 02/20/24 12:26 [facility] [id number]) Cognitive Factors Limiting Selfcare Function Cognitive Comments Cognitive Assessment Comments Pt still very tearful and in pain with just having the HOB up while in supine. Encouraged pt to get up so not to get stiff. Suggested pt may need to go to skilled rehab and pt refused and states will go home tomorrow as not feeling ready to go today. Since pt's will be going back to work on Friday, they are looking into family to come and assist and be with her. M7 OT- IP Mobility and Balance Start: 02/19/24 15:21 Freq: Status: Active Protocol: Document 02/19/24 15:22 [facility] (Rec: 02/19/24 15:53 [facility] [id number]) OT- Bed Mobility Assessment Supine to Sit Supine to Sit Assist Standby Assistance Sit to Supine Sit to Supine Assist Minimal Assistance,1 Person Assistance OT-Transfer Assessment Sit to and From Stand Sit to and from Stand Contact Guard Assistance Transfers Transfer Ability Contact Guard Assistance Technique Transfer Destination Bed,Toilet Transfer Technique Stand Step Pivot Devices Transfer Assistive Devices Gait Belt,Front Wheeled Walker Comments Mobility Comments CGA to PAOLA for bed mobility needs but has lots of pain and may benefit from sleeping in a recliner initially. CGA to SBA with FWW and transfers. OT- Balance Assessment Sitting Balance and Reactions Static Sitting Balance Ability Good Dynamic Sitting Balance Ability Good Standing Balance and Reactions Static Standing Balance Ability Good Dynamic Standing Balance Ability Fair M8 OT- IP Objective Assessments Start: 02/19/24 15:21 Freq: Status: Active Protocol: Document 02/19/24 15:22 [facility] (Rec: 02/19/24 15:53 [facility] [id number]) OT Gross Range of Motion Upper Extremity Range of Motion Assessment Within Functional Limits OT Strength Upper Extremity Strength Assessment Within Functional Limits M9 OT- IP Assessment and Plan Start: 02/19/24 15:21 Freq: Status: Active Protocol: Document 02/20/24 12:18 [facility] (Rec: 02/20/24 12:26 [facility] [id number]) OT Summary Assessment and Plan Potential Rehabilitation Potential Good Analytic Complexity at Evaluation Low Summary OT Impairments Pain,Strength,Balance, Functional Mobility,Grooming, Dressing,Toileting,Bathing, Toilet Transfers,Shower Transfers,Activity Tolerance Progress Towards Goals Slow Progress due to Pain,Slow Progress due to Medical Issues,Slow Progress due to Activity Tolerance Assessment Summary Pt is too much pain to get to the recliner for lunch even after encouragement. At this time pt would possibly benefit from skilled rehab pending if able to do the stairs. Home with 24/7 assist versus SNF. Goals Grooming Goal Independent Dressing Goal Minimal Assistance Toileting Goal Minimal Assistance Bathing Goal Minimal Assistance Toilet Transfer Goal Independent Shower Transfer Goal Standby Assistance Days to Meet Goals 7 Frequency of Treatment Other frequency 5x/week Treatment Plan OT Treatment Plan ADL Training,Functional Mobility,Patient/Family Education,Discharge Planning Other Treatment Recommendations and Next Standng ADL's. Treatment Focus Discharge Recommendations OT Discharge Recommendations Home with 24/7 Assist Available,Home Health,SNF Rehab,Home vs SNF Home Equipment Needs Toilet paper aid, tub bench, HHSP, BSC Transportation Needs at Discharge Private Vehicle,Wheelchair/ Cabulance
--- NOTE | 2024-02-20 13:35 | PT.IPTN ---
Current Diagnoses Spondylolisthesis, lumbar region (02/18/24) Spinal stenosis, lumbar region without neurogenic claudication (02/18/24) Surgery Performed Operation Date: 02/18/24 07:45 Actual Procedures p L4-5 TLIF, L5-S1 Hemilaminectomy - Balwinder Velasquez MD Physical Therapy Treatment Note M2 PT-IP Current Condition Start: 02/19/24 07:40 Freq: NEEDED Status: Active Protocol: Document 02/19/24 10:46 MB (Rec: 02/19/24 10:59 MB [id number]) Physical Therapy Current Condition Current Condition Evaluation Date 02/19/24 Treatment Diagnosis L4-5 TLIF M3 PT-IP Subjective Start: 02/19/24 07:40 Freq: NEEDED Status: Active Protocol: Document 02/20/24 13:35 AB (Rec: 02/20/24 16:05 AB [id number]) Subjective Physical Therapy Visit Type Type Treatment Note Visit Start Time 13:35 Visit Stop Time 14:05 Number of SPINNING LATHE OPERATOR Visits 0 Physical Therapy Visit Comments Patient Comments requested to use the toilet Therapy Pain Assessment Pain When Pain Assessed At Rest Pain Present Pain Present Pain Reported Location low back Scale Used pain scale not stated Pain Behaviors Calling Out,Facial Grimacing, Guarding,Restlessness,Wincing Pain Management Techniques Apply Cold,Distraction, Modification of Treatment,Re- positioning,Timing of Activity with Medications M4 PT-IP Mobility and Gait Start: 02/19/24 07:40 Freq: NEEDED Status: Active Protocol: Document 02/20/24 13:35 AB (Rec: 02/20/24 16:05 AB [id number]) PT-Bed Mobility Assessment Rolling Type of Rolling Log Rolling Level of Assist Minimal Assistance Supine to Sit Supine to Sit Minimal Assistance,Bedrails Sit to Supine Sit to Supine Minimal Assistance,Bedrails PT-Transfer Assessment Sit to and From Stand Sit to and from Stand Minimal Assistance,Moderate Assistance,Maximum Assistance, 1 Person Assistance,Use of Upper Extremities Equipment Transfer Assistive Device Gait Belt,4 Wheeled Walker Orthotic/Prosthetic Devices or Brace: No Transfers Transfer Destination Toilet Transfer Technique ambulated Transfer Ability Level of Assist Minimal Assistance,1 Person Assistance,Use of Upper Extremities Comments Mobility Comments pt supine in bed. spouse in room. pt c/o increase back pain and is moaning and screaming even prior to mobility. pt had already recived IV dilaudid. pt agreed to get up and requested to use the toilet. pt completed log roll supine to sit min A and max cues. pt required increase time to complete task . continue to scream and moan due to pain. pt completed sit to stand mod A and max cues and needed 2 attempts to be able to stand. spouse assisted pt. pt ambulated to the toilet using 4WW ~ 12 ft min A and cues. pt required max A for controlled descent to the toilet . pt required min A with sit to stand from the toilet using grab bar and needed assistance with brief management. pt ambulated from the toilet towards the sink using 4WW min A . able to stand by the sink using counter/4WW for support min A while completing handwashing. spouse assisted pt. pt ambulated from the sink to the EOB using 4WW min A. completed sit to supine log orll min A and cues. positioned pt on the bed. call light and table placed within reach. continue to c/o increase back pain. informed pt and spouse regarding stair climbing. pt prefers going into the house through the 5 steps no rail vs 2 steps no rail as well. stated that the 2 steps are steeper and she has to walk farther. spouse stated that his mom will be home tomorrow to assist them with stairs if needed. Gait Assessment Gait Gait Assistance Required: Minimum Assistance Distance (Feet) 15 Able to Maintain Weight Bearing Status Yes During Gait Assistive Devices Assistive Device Gait Belt,Front Wheeled Walker Orthotic/Prosthetic Devices or Brace: No Gait Deviations General Gait Pattern Antalgic,Decreased Stride Length,Step-to Gait Factors Limiting Gait Function Factors Limiting Gait Function Decreased Activity Tolerance, Decreased Strength,Difficulty Following Directions,Limited Range of Motion,Pain,Poor Balance,Poor Safety Awareness M5 PT-IP Objective Assessments Start: 02/19/24 07:40 Freq: NEEDED Status: Active Protocol: Document 02/19/24 10:46 MB (Rec: 02/19/24 10:59 MB [id number]) Orientation Orientation/Cognition Level of Alertness Alert Orientation Name,Age,Birthday,Month,Date, Year,Day of Week,Place, Situation Language Function Ability No Deficits Noted Safety Awareness Decreased Safety Awareness Memory Description No Deficits Noted Gross Range of Motion Upper Extremity ROM Impairments Defer to OT Lower Extremity ROM Assessment Within Functional Limits Strength Comments Strength Comments Pt does not tolerate formal range or MMT and so functionally observed only and no deficits noted Coordination Assessment Assessment Coordination Comments Pt does not tolerate LE coordination testing today Sensation Assessment Comments Sensation Comments Reports of ongoing mild paresthesias in right leg Muscle Tone Muscle Tone WNL Yes M6 PT-IP Treatment Start: 02/19/24 07:40 Freq: NEEDED Status: Active Protocol: Document 02/20/24 13:35 AB (Rec: 02/20/24 16:05 AB [id number]) Physical Therapy Treatment Education Education Provided Precautions,Safety M7 PT-IP Assessment and Plan Start: 02/19/24 07:40 Freq: NEEDED Status: Active Protocol: Document 02/20/24 13:35 AB (Rec: 02/20/24 16:05 AB [id number]) PT Summary Assessment and Plan Potential Rehabilitation Potential Fair Summary Impairments Pain,ROM,Strength,Balance, Coordination,Sensation,Tone, Cognition,Bed Mobility, Transfers,Gait,Activity Tolerance Progress Towards Goals Slow Progress due to Pain Assessment Summary pt requiring min A with ambulation using 4WW. spouse able to assist pt with mobility. pt continues to c/o increase pain and unable to tolerate much activity. pt able to ambulate to the toilet this afternoon and back with assistance. will continue to assess progress. pt has steps to enter the house without rail and will complete stair climbing training when appropriate. Goals Bed Mobility Goal Independent Transfer Goal Independent,Front Wheeled Walker,Four Wheeled Walker Gait Goal Independent,Front Wheel Walker ,Four Wheel Walker Gait Distance 100 Other Goals Pt will ascend and descend 5 steps with cane and BOTANY TEACHER to allow safe home entrance. Days to Meet Goals 5 Frequency of Treatment Frequency Of Treatment Twice a Day Treatment Plan Physical Therapy Treatment Plan Bed Mobility Training,Transfer Training,Gait Training, Therapeutic Exercise,Balance Retraining,Post Op Education, Discharge Planning,Hot or Cold Pack,Neuromuscular Re-ed, Coordination Retraining,Manual Therapy Precautions Lumbar Precautions Log Roll,No Twisting,Limit Bending,Lifting Restriction of 10 lbs,Gait Belt above Incisional Area Recommendations To Nursing Amount of Assist Needed 1 Person Assist Discharge Recommendations PT Discharge Recommendations Home with 16/12 Assist Available,Home Health Transportation Needs at Discharge Private Vehicle
--- NOTE | 2024-02-20 14:15 | CM.DPC ---
Addendum entered by DEL Alatorre 02/20/24 15:15: DCP Updated: DCP entered room, introduced self and role. Present in the room is pt's . Per patient, she is still in a lot of pain and obtaining IV pain medications. Patient declines this DCP's offer for SNF and home health referral. Patient hopeful that she can manage her pain levels soon and discharge home. Her is able to assist her before and after work hours (6am-3pm). DCP updated Ortho PA. MONET Lunsford Original Note: DCP Continued: Reviewed EMR and team rounds for pt?s medical status. Per OT, pt not very motivated to participate due to pain levels. DCP to discuss home health or even private caregiving for extra support at discharge if plan to dc home. Barrier: Spouse able to assist until Friday when he starts new job, no other support to assist pt locally. Plan: Discharge home 02/20, pending PT evaluation and follow up with [facility] 2 weeks post discharge. CM team following for discharge coordination. MONET Lunsford
--- NOTE | 2024-02-20 16:58 | PC.NURSE ---
Day shift: OOB and to BSC at approx 1700 today. Tolerated well. Some audible moans and groans. Next pain med can be given at 1730 and Pt is ok with waiting. Attempting to not use IV pain meds at this time. Call light in reach. Agrees to not get OOB without help from staff. Tolerating SCD's. Encouraged to use I.S. as directed. Bed alarm is on. Pt eating dinner now. Improving and Pt states I'm really trying. Will continue w/ post-op plan of care.
[2024-02-20] MEDS: PROGESTERONE, MICRONIZED 100 MG CAPSULE PO (17:09)
[2024-02-20 20:00] VITALS: BP 125/81; PULSE 98; RESP 18; TEMP 37.4; O2SAT 100
[2024-02-20] MEDS: ZOLPIDEM 5 MG TABLET 10 MG PO (20:22)
[2024-02-20] MEDS: ACETAMINOPHEN 325 MG TABLET 650 MG PO (20:22)
[2024-02-20] MEDS: SENNOSIDES 8.6 MG TABLET 17.2 MG PO (20:22)
[2024-02-21] MEDS: HYDROMORPHONE 0.5 MG INJ IV (02:15)
[2024-02-21] MEDS: TIZANIDINE 4 MG TABLET 2 MG PO ×3 (04:55→18:17)
[2024-02-21] MEDS: OXYCODONE IR 10 MG TABLET PO ×5 (04:57→21:31)
[2024-02-21 08:00] VITALS: BP 110/71; PULSE 89; RESP 12; TEMP 36.7; O2SAT 99
[2024-02-21] MEDS: DOCUSATE 100 MG CAPSULE PO ×2 (08:19→21:32)
[2024-02-21] MEDS: GABAPENTIN 300 MG CAPSULE PO ×3 (08:19→21:31)
[2024-02-21] MEDS: estradioL 1 MG TABLET PO (08:19)
[2024-02-21] MEDS: clonazePAM 0.5 MG TABLET 1 MG PO ×2 (08:20→21:31)
--- NOTE | 2024-02-21 10:15 | PT.IPTN ---
Current Diagnoses Spondylolisthesis, lumbar region (02/18/24) Spinal stenosis, lumbar region without neurogenic claudication (02/18/24) Surgery Performed Operation Date: 02/18/24 07:45 Actual Procedures p L4-5 TLIF, L5-S1 Hemilaminectomy - Balwinder Velasquez MD Physical Therapy Treatment Note M2 PT-IP Current Condition Start: 02/19/24 07:40 Freq: NEEDED Status: Active Protocol: Document 02/19/24 10:46 MB (Rec: 02/19/24 10:59 MB [id number]) Physical Therapy Current Condition Current Condition Evaluation Date 02/19/24 Treatment Diagnosis L4-5 TLIF M3 PT-IP Subjective Start: 02/19/24 07:40 Freq: NEEDED Status: Active Protocol: Document 02/21/24 11:15 TS (Rec: 02/21/24 11:49 TS [id number]) Subjective Physical Therapy Visit Type Type Treatment Note Visit Start Time 10:15 Visit Stop Time 11:[address] CLEANER Visits 1 Physical Therapy Visit Comments Patient Comments Pt found resting in bed, reports high pain and fearful to move. She is agreeable PT. Therapy Pain Assessment Pain When Pain Assessed At Rest Pain Present Pain Present Pain Reported Location low back Pain Behaviors Calling Out,Facial Grimacing, Guarding,Restlessness,Wincing Pain Management Techniques Apply Cold,Distraction, Modification of Treatment,Re- positioning,Timing of Activity with Medications M4 PT-IP Mobility and Gait Start: 02/19/24 07:40 Freq: NEEDED Status: Active Protocol: Document 02/21/24 11:15 TS (Rec: 02/21/24 11:49 TS [id number]) PT-Bed Mobility Assessment Rolling Type of Rolling Log Rolling Level of Assist Contact Guard Assistance Supine to Sit Supine to Sit Contact Guard Assistance, Bedrails Sit to Supine Sit to Supine Contact Guard Assistance Scooting Scooting to Edge of Bed Standby Assistance Scooting Up and Down in Bed Standby Assistance PT-Transfer Assessment Sit to and From Stand Sit to and from Stand Contact Guard Assistance,1 Person Assistance,Use of Upper Extremities Equipment Transfer Assistive Device Gait Belt,4 Wheeled Walker Orthotic/Prosthetic Devices or Brace: No Comments Mobility Comments Pt performs logroll to R side CGA, pt calls out in pain. STS from EOB CGA with FWW, pt is slow to stand due to the pain. She ambulates ~20' SBA with 4WW with a slow step to gait, continues to call out in pain. She performs steps x3 with COAGULATION OPERATOR from spouse and ROAD CLEANER, cues were provided for sequencing. She ambulates back to the bed, performs sit to supine CGA into bed. Pt was left in bed, all needs met. Gait Assessment Gait Gait Assistance Required: Contact Guard Assist Distance (Feet) 20 Able to Maintain Weight Bearing Status Yes During Gait Assistive Devices Assistive Device Gait Belt,Front Wheeled Walker Orthotic/Prosthetic Devices or Brace: No Gait Deviations General Gait Pattern Antalgic,Decreased Stride Length,Step-to Gait Factors Limiting Gait Function Factors Limiting Gait Function Decreased Activity Tolerance, Decreased Strength,Limited Range of Motion,Pain,Poor Balance,Poor Safety Awareness Stair Climbing Assessment Evaluation Level of Assist On Stairs Moderate Assistance,1 Person Assistance Technique/Endurance Stair Climbing Direction Ascend and Descend Stair Climbing Technique Step to Step Number of Steps Climbed 3 Comments Stair Climbing Comments Bilateral COAGULATION OPERATOR PT-Balance Assessment Sitting Balance and Reactions Static Sitting Balance Ability Good Dynamic Sitting Balance Ability Good Standing Balance and Reactions Static Standing Balance Ability Good Dynamic Standing Balance Ability Fair Device Used FWW M5 PT-IP Objective Assessments Start: 02/19/24 07:40 Freq: NEEDED Status: Active Protocol: Document 02/19/24 10:46 MB (Rec: 02/19/24 10:59 MB [id number]) Orientation Orientation/Cognition Level of Alertness Alert Orientation Name,Age,Birthday,Month,Date, Year,Day of Week,Place, Situation Language Function Ability No Deficits Noted Safety Awareness Decreased Safety Awareness Memory Description No Deficits Noted Gross Range of Motion Upper Extremity ROM Impairments Defer to OT Lower Extremity ROM Assessment Within Functional Limits Strength Comments Strength Comments Pt does not tolerate formal range or MMT and so functionally observed only and no deficits noted Coordination Assessment Assessment Coordination Comments Pt does not tolerate LE coordination testing today Sensation Assessment Comments Sensation Comments Reports of ongoing mild paresthesias in right leg Muscle Tone Muscle Tone WNL Yes M6 PT-IP Treatment Start: 02/19/24 07:40 Freq: NEEDED Status: Active Protocol: Document 02/21/24 11:15 TS (Rec: 02/21/24 11:49 TS [id number]) Physical Therapy Treatment Education Education Provided Precautions,Safety M7 PT-IP Assessment and Plan Start: 02/19/24 07:40 Freq: NEEDED Status: Active Protocol: Document 02/21/24 11:15 TS (Rec: 02/21/24 11:49 TS [id number]) PT Summary Assessment and Plan Potential Rehabilitation Potential Fair Summary Impairments Pain,ROM,Strength,Balance, Coordination,Sensation,Tone, Cognition,Bed Mobility, Transfers,Gait,Activity Tolerance Progress Towards Goals Slow Progress due to Pain Assessment Summary Annabella continues to have high amounts of pain that is limiting her in progressing her mobility. She is SBA/CGA for bed mobility, she demonstrates good carryover of sequencing. She continues to ambulate short distances in the room SBA/CGA with 4WW. She progressed to stairs x3 with bilateral COAGULATION OPERATOR from spouse and ROAD CLEANER. PT is recommending pt return home with 24/7 assist and HHPT. Pt is fearful of going home due to not having the support she feels she may need and her pain. She would like her pain to be more controlled before returing home but was agreeable to try home today if that's what recommended. Spouse is to return to work on Friday. Goals Bed Mobility Goal Independent Transfer Goal Independent,Front Wheeled Walker,Four Wheeled Walker Gait Goal Independent,Front Wheel Walker ,Four Wheel Walker Gait Distance 100 Other Goals Pt will ascend and descend 5 steps with cane and COAGULATION OPERATOR to allow safe home entrance. Days to Meet Goals 5 Frequency of Treatment Frequency Of Treatment Twice a Day Treatment Plan Physical Therapy Treatment Plan Bed Mobility Training,Transfer Training,Gait Training, Therapeutic Exercise,Balance Retraining,Post Op Education, Discharge Planning,Hot or Cold Pack,Neuromuscular Re-ed, Coordination Retraining,Manual Therapy Precautions Lumbar Precautions Log Roll,No Twisting,Limit Bending,Lifting Restriction of 10 lbs,Gait Belt above Incisional Area Recommendations To Nursing Amount of Assist Needed 1 Person Assist Discharge Recommendations PT Discharge Recommendations Home with 24/7 Assist Available,Home Health Transportation Needs at Discharge Private Vehicle
[2024-02-21] MEDS: HYDROMORPHONE 2 MG TABLET PO ×2 (12:28→19:45)
--- NOTE | 2024-02-21 12:46 | P.PN_ITS ---
Subjective Subjective Interval history: Annabella is a 43 year old female who is POD#3 s/p L4-5 Postero-lateral and posterior interbody fusion w/ cage placement and L5-S1 hemilaminectomy by Dr. Velasquez. This morning patient reports that she is still in a significant amount of pain, she does not feel any better than yesterday, she expresses anxiety about d/c to home w/o adequate pain control and having limited support at home. Pain does not radiate, not burning or shocking. Pain is localized around the incision site. Denies any muscle spasms of the back. She takes gabapentin and tizanidine regularly for back pain at home. She lives at home w/ her who is willing and able to aid in her post-op care, they have 2 steps up into the house but she can stay in the guest bedroom on the first floor while she recovers so she does not have to do steps within the home. plans to return to work on Friday however and so she will be home alone during the day. She has a walker already. She currently has a purewik in place. She has been able to work w/ PT the last two days and is mobilizing fairly well, one person assist only, but is limited in mobilization by her pain. Denies fever, chills, chest pain, SOB, nausea, vomiting. Exam Vital Signs (past 8 hours): - 02/21/24 08:00 02/21/24 10:22 Temperature 98.0 F Pulse Rate 89 Respiratory Rate 12 Blood Pressure 110/71 Pulse Oximetry 99 Oxygen Delivery Method Room Air Oxygen Flow Rate 0 Oxygen Delivery Method Room Air Oxygen Flow Rate 0 Narrative Exam Narrative: Patient lying in bed during our interview today, she appears relatively comfortable at rest but is tearful and grimaces w/ any movement. AOx3. 4/5 strength with DF, PF, EHL bilaterally. Gross sensation intact throughout bilateral lower extremities. Calves soft and non-tender bilaterally. SCDs are on and functioning. Brisk capillary refill, pulses intact. Post-surgical dressing clean, dry and intact over the lumbar spine without drainage. Objective Labs 02/19/24 04:07 [facility] Medical History (Updated 02/13/24 @ 10:24 by Dedra Velazquez RN) Anxiety and depression History of PCOS Interstitial cystitis Fibromyalgia Surgical History (Updated 02/13/24 @ 10:06 by Dedra Velazquez RN) Hx of cholecystectomy History of appendectomy H/O: hysterectomy Social History household members: spouse Smoking Status: Never smoker alcohol intake: current Assessment & Plan Post-op Postoperative Procedures: Procedures Operation Date: 02/18/24 07:45 Actual Procedure Side Surgeon p L4-5 TLIF, L5-S1 Hemilaminectomy Balwinder Velasquez MD Postoperative plan narrative: 1) Plan to discharge to home, hopefully later today, possible tomorrow. 2) Continue multimodal pain management, I have removed patients IV pain medication and replaced w/ PO Dilaudid in order to transition patient to p.o. only medications for home. Offered to change patients muscle relaxant but she states tizanidine is the only one that works for her. Discussed pain expectations w/ patient. 3) Mechanical DVT prophylaxis. 4) Maintain BLT restrictions. She can continue to work w/ PT on mobilization. 5) Keep dressing intact, clean, dry until 2 week postop appointment. No soaking the incision site in pools or tubs. No topical ointments or creams to the incision site. 6) Follow up at [facility] orthopedics in 2 weeks for a postop appointment and wound check. All patient's questions were answered, they demonstrates understanding and are in agreement with the plan. Call our office if any questions or concerns arise. Quality VTE Deep Vein Thrombosis/Pulmonary Embolism Present on Admission: No
--- NOTE | 2024-02-21 14:19 | PT-IP ANOTE ---
Pt continues to have high pain. She was left to rest in bed this afternoon. PT will check on pt in the morning.
[2024-02-21] MEDS: OXYCODONE IR 5 MG TABLET PO (14:49)
[2024-02-21] MEDS: PROGESTERONE, MICRONIZED 100 MG CAPSULE PO (18:16)
[2024-02-21] MEDS: ACETAMINOPHEN 325 MG TABLET 650 MG PO (19:44)
[2024-02-21 20:14] VITALS: BP 102/64; PULSE 115; RESP 22; TEMP 36.8; O2SAT 97
[2024-02-21] MEDS: ZOLPIDEM 5 MG TABLET 10 MG PO (21:31)
[2024-02-22] MEDS: HYDROMORPHONE 2 MG TABLET PO ×3 (00:56→12:04)
[2024-02-22] MEDS: OXYCODONE IR 10 MG TABLET PO ×3 (00:56→09:58)
[2024-02-22] MEDS: OXYCODONE IR 5 MG TABLET PO (08:09)
[2024-02-22] MEDS: clonazePAM 0.5 MG TABLET 1 MG PO (08:09)
[2024-02-22] MEDS: GABAPENTIN 300 MG CAPSULE PO (08:09)
[2024-02-22] MEDS: estradioL 1 MG TABLET PO (08:09)
[2024-02-22] MEDS: polyethylene glycoL 3350 17 GM POWD.PACK PO (08:09)
[2024-02-22] MEDS: DOCUSATE 100 MG CAPSULE PO (08:09)
[2024-02-22] MEDS: ACETAMINOPHEN 325 MG TABLET 650 MG PO (08:09)
[2024-02-22 08:14] VITALS: BP 118/75; PULSE 86; RESP 18; TEMP 36.4; O2SAT 100
--- NOTE | 2024-02-22 11:23 | PT.IPTN ---
Current Diagnoses Spondylolisthesis, lumbar region (02/18/24) Spinal stenosis, lumbar region without neurogenic claudication (02/18/24) Surgery Performed Operation Date: 02/18/24 07:45 Actual Procedures p L4-5 TLIF, L5-S1 Hemilaminectomy - Balwinder Velasquez MD Physical Therapy Treatment Note M2 PT-IP Current Condition Start: 02/19/24 07:40 Freq: NEEDED Status: Active Protocol: Document 02/19/24 10:46 MB (Rec: 02/19/24 10:59 MB [id number]) Physical Therapy Current Condition Current Condition Evaluation Date 02/19/24 Treatment Diagnosis L4-5 TLIF M3 PT-IP Subjective Start: 02/19/24 07:40 Freq: NEEDED Status: Active Protocol: Document 02/22/24 10:44 MB (Rec: 02/22/24 11:22 MB [id number]) Subjective Physical Therapy Visit Type Type Treatment Note Visit Start Time 10:44 Visit Stop Time 11:07 Number of API PRODUCT MANAGER Visits 0 Physical Therapy Visit Comments Patient Comments Pt supine in bed with nearby. She is not tearful at rest and does c/o high pain. She starts to cry a little when PT starts talking with her about mobility. Therapy Pain Assessment Pain When Pain Assessed During Mobility Pain Present Pain Present Pain Reported Location low back Intensity 9 M4 PT-IP Mobility and Gait Start: 02/19/24 07:40 Freq: NEEDED Status: Active Protocol: Document 02/22/24 10:44 MB (Rec: 02/22/24 11:22 MB [id number]) PT-Bed Mobility Assessment Rolling Type of Rolling Log Rolling,Roll to Right Level of Assist Independent Supine to Sit Supine to Sit Standby Assistance,Bedrails Scooting Scooting to Edge of Bed Standby Assistance PT-Transfer Assessment Sit to and From Stand Sit to and from Stand Standby Assistance,1 Person Assistance,Use of Upper Extremities Equipment Transfer Assistive Device Gait Belt,4 Wheeled Walker Orthotic/Prosthetic Devices or Brace: No Transfer Ability Level of Assist Standby Assistance,2 Person Assistance,Use of Upper Extremities Comments Mobility Comments Pt tends to reach for rollator and she wishes to keep it locked for gait as it makes her feel better. She keeps eyes closed occ and cues to open and PT shows her how to lock and unlock rollator. Gait Assessment Gait Gait Assistance Required: Standby Assistance,Contact Guard Assist,1 Person Assist Distance (Feet) 10 Able to Maintain Weight Bearing Status Yes During Gait Assistive Devices Assistive Device Gait Belt,4 Wheeled Walker Orthotic/Prosthetic Devices or Brace: No Gait Deviations General Gait Pattern Antalgic,Decreased Stride Length,Step-to Gait Factors Limiting Gait Function Factors Limiting Gait Function Pain,Poor Safety Awareness Comments Gait Comments Pt begins to cry with mobility and c/o pain. She does not really need physical assistance with gait and PT provides verbal encouragement. Stair Climbing Assessment Evaluation Level of Assist On Stairs Minimal Assistance,1 Person Assistance Devices Stair Climbing Assistive Devices None Technique/Endurance Stair Climbing Direction Ascend and Descend Stair Climbing Technique Step to Step Number of Steps Climbed 1 Stair Climbing Set # Repetitions (reps) 2 Comments Stair Climbing Comments Gait belt and ed to hold gait belt around pt's waist and then CENTRIFUGAL WAX MOLDER on one side with him staggering a step to ascend and descend step. One rep with PT and one rep with and he reports understanding of technique at home. PT-Balance Assessment Sitting Balance and Reactions Static Sitting Balance Ability Good Dynamic Sitting Balance Ability Good Standing Balance and Reactions Static Standing Balance Ability Good Dynamic Standing Balance Ability Fair Device Used 4WRW M5 PT-IP Objective Assessments Start: 02/19/24 07:40 Freq: NEEDED Status: Active Protocol: Document 02/19/24 10:46 MB (Rec: 02/19/24 10:59 MB [id number]) Orientation Orientation/Cognition Level of Alertness Alert Orientation Name,Age,Birthday,Month,Date, Year,Day of Week,Place, Situation Language Function Ability No Deficits Noted Safety Awareness Decreased Safety Awareness Memory Description No Deficits Noted Gross Range of Motion Upper Extremity ROM Impairments Defer to OT Lower Extremity ROM Assessment Within Functional Limits Strength Comments Strength Comments Pt does not tolerate formal range or MMT and so functionally observed only and no deficits noted Coordination Assessment Assessment Coordination Comments Pt does not tolerate LE coordination testing today Sensation Assessment Comments Sensation Comments Reports of ongoing mild paresthesias in right leg Muscle Tone Muscle Tone WNL Yes M6 PT-IP Treatment Start: 02/19/24 07:40 Freq: NEEDED Status: Active Protocol: Document 02/22/24 10:44 MB (Rec: 02/22/24 11:22 MB [id number]) Physical Therapy Treatment Education Education Provided Precautions,Safety M7 PT-IP Assessment and Plan Start: 02/19/24 07:40 Freq: NEEDED Status: Active Protocol: Document 02/22/24 10:44 MB (Rec: 02/22/24 11:22 MB [id number]) PT Summary Assessment and Plan Potential Rehabilitation Potential Fair Summary Impairments Pain,ROM,Strength,Balance, Coordination,Bed Mobility, Transfers,Gait,Activity Tolerance Progress Towards Goals Slow Progress due to Pain Assessment Summary Pt con't with high pain. She mobilizes well with rail in bed and she is SBA for transfers and SBA to [facility] for gait with 4WRW 10'x2. She starts to cry with mobility but much less than when working with this PT 3 days ago. is nearby and practices step again with pt. Not taken out of room d/t crying and not wishing to disturb rest of patients in hospital. No real further acute PT needs. Pain management and encouragement are her biggest needs, it appears. is supportive and will be with her at d/c. Goals Bed Mobility Goal Independent Transfer Goal Independent,Front Wheeled Walker,Four Wheeled Walker Gait Goal Independent,Front Wheel Walker ,Four Wheel Walker Gait Distance 100 Other Goals Pt will ascend and descend 5 steps with cane and CENTRIFUGAL WAX MOLDER to allow safe home entrance. Days to Meet Goals 5 Frequency of Treatment Frequency Of Treatment Once a Day Treatment Plan Physical Therapy Treatment Plan Bed Mobility Training,Transfer Training,Gait Training, Therapeutic Exercise,Balance Retraining,Post Op Education, Discharge Planning,Hot or Cold Pack,Neuromuscular Re-ed, Coordination Retraining,Manual Therapy Precautions Lumbar Precautions Log Roll,No Twisting,Limit Bending,Lifting Restriction of 10 lbs,Gait Belt above Incisional Area Recommendations To Nursing Amount of Assist Needed 1 Person Assist Discharge Recommendations PT Discharge Recommendations Home with 16/12 Assist Available Transportation Needs at Discharge Private Vehicle
--- NOTE | 2024-02-22 11:29 | P.PN_ITS ---
Subjective Subjective Interval history: She continues to note substantial problems with pain management. She has not having significant leg pain. She does not note new weakness or numbness into her legs. Her chief complaint is severe low back pain and some component of anxiety. Exam Vital Signs (past 8 hours): - 02/22/24 08:14 Temperature 97.5 F L Pulse Rate 86 Respiratory Rate 18 Blood Pressure 118/75 Pulse Oximetry 100 Oxygen Delivery Method Room Air Oxygen Flow Rate 0 Narrative Exam Narrative: Dressing is dry, she is resting in the chair, she did mobilize with physical therapy, sensations intact in bilateral lower extremities and she has near normal strength of dorsiflexion plantar flexion EHL quad and ham bilateral lower extremities, calves are soft Objective Labs 02/19/24 04:07 [facility] Medical History (Updated 02/13/24 @ 10:24 by Dedra Velazquez RN) Anxiety and depression History of PCOS Interstitial cystitis Fibromyalgia Surgical History (Updated 02/13/24 @ 10:06 by Dedra Velazquez RN) Hx of cholecystectomy History of appendectomy H/O: hysterectomy Social History household members: spouse Smoking Status: Never smoker alcohol intake: current Assessment & Plan Post-op Postoperative Procedures: Procedures Operation Date: 02/18/24 07:45 Actual Procedure Side Surgeon p L4-5 TLIF, L5-S1 Hemilaminectomy Balwinder Velasquez MD Postoperative day: 4 Postoperative status: marginal pain control Postoperative status narrative: She is making progress. She has been cleared by physical therapy. She is having problems with back pain pain management. She is neurologically intact. I have recommended discharge to home. We went over her pain medications in detail. Postoperative plan: discharge Quality VTE Deep Vein Thrombosis/Pulmonary Embolism Present on Admission: No
[2024-02-22] MEDS: TIZANIDINE 4 MG TABLET 2 MG PO (12:05)
--- NOTE | 2024-02-22 12:31 | CM.DPNOTE ---
DCP Note SALES DEVELOPMENT EXECUTIVE reviewed EMR. Per chart review, pt to dc home today with family support. Pt POD4 from TLIF. Per RN, pt anxious but cleared to dc home. P: anticipate dc home with spouse support today, no identified barriers to safe dc home identified at this time. CM team will continue to follow as needed DEL Cochran
--- NOTE | 2024-02-22 13:34 | PC.NURSE ---
Pt agreeable to discharge. Discharge instructions provided to pt and significant other. Pt stated, I don't need these papers. Significant other requested the papers. significant other stated, I need these papers to help you. Pt tearful and argumentative with significant other. When wheelchair brought to room, pt stated, I can walk myself out of here. When educated on the safety details of wheeling surgical patients at discharge, pt verbalized frustration with policies in place. Pt tossed discharge paperwork onto bed. Pt educated on importance of following up with surgeon, including all details in the discharge paperwork, and pain management. Significant other picked up paperwork. Pt wheeled via wheelchair to private vehicle at approximately 1250, tearful and shaking head while in transit. Pt able to ambulate from wheelchair to private vehicle independently.
--- NOTE | 2024-04-14 18:02 | PM.DS.1 ---
History of Present Illness History of Present Illness Chief complaint: Heath *OPB* Narrative: Subjective Subjective Interval history: Annabella is a 43 year old female who is POD#4 s/p L4-5 Postero-lateral and posterior interbody fusion w/ cage placement and L5-S1 hemilaminectomy by Dr. Velasquez. This morning patient reports that she is still in a significant amount of pain, she does not feel any better than yesterday, she expresses anxiety about d/c to home w/o adequate pain control and having limited support at home. Pain does not radiate, not burning or shocking. Pain is localized around the incision site. Denies any muscle spasms of the back. She takes gabapentin and tizanidine regularly for back pain at home. She lives at home w/ her who is willing and able to aid in her post-op care, they have 2 steps up into the house but she can stay in the guest bedroom on the first floor while she recovers so she does not have to do steps within the home. plans to return to work on Friday however and so she will be home alone during the day. She has a walker already. She currently has a purewik in place. She has been able to work w/ PT the last two days and is mobilizing fairly well, one person assist only, but is limited in mobilization by her pain. Denies fever, chills, chest pain, SOB, nausea, vomiting. Exam Vital Signs (past 8 hours): - 02/21/2408:00 02/20/2410:22 Temperature 98.0 F Pulse Rate 89 Respiratory Rate 12 Blood Pressure 110/71 Pulse Oximetry 99 Oxygen Delivery Method Room Air Oxygen Flow Rate 0 Oxygen Delivery Method Room Air Oxygen Flow Rate 0 Narrative Exam Narrative: Patient lying in bed during our interview today, she appears relatively comfortable at rest but is tearful and grimaces w/ any movement. AOx3. 4/5 strength with DF, PF, EHL bilaterally. Gross sensation intact throughout bilateral lower extremities. Calves soft and non-tender bilaterally. SCDs are on and functioning. Brisk capillary refill, pulses intact. Post-surgical dressing clean, dry and intact over the lumbar spine without drainage. Objective Labs 02/19/24 04:07 [facility] Medical History (Updated 02/13/24 @ 10:24 by Dedra Velazquez RN) Anxiety and depression History of PCOS Interstitial cystitis Fibromyalgia Surgical History (Updated 02/13/24 @ 10:06 by Dedra Velazquez, RN) Hx of cholecystectomy History of appendectomy H/O: hysterectomy Social History household members: spouse Smoking Status: Never smoker alcohol intake: current Assessment & Plan Post-op Postoperative Procedures: Procedures Operation Date: 02/18/24 07:45 Actual Procedure Side Surgeon p L4-5 TLIF, L5-S1 Hemilaminectomy Balwinder Velasquez MD Postoperative plan narrative: 1) Plan to discharge to home, hopefully later today. 2) Continue multimodal pain management, I have removed patients IV pain medication and replaced w/ PO Dilaudid in order to transition patient to p.o. only medications for home. Offered to change patients muscle relaxant but she states tizanidine is the only one that works for her. Discussed pain expectations w/ patient. 3) Mechanical DVT prophylaxis. 4) Maintain BLT restrictions. She can continue to work w/ PT on mobilization. 5) Keep dressing intact, clean, dry until 2 week postop appointment. No soaking the incision site in pools or tubs. No topical ointments or creams to the incision site. 6) Follow up at [facility] orthopedics in 2 weeks for a postop appointment and wound check. All patient's questions were answered, they demonstrates understanding and are in agreement with the plan. Call our office if any questions or concerns arise. Discharge Providers Provider Date of admission: 02/18/24 12:05 Discharge Date: 02/22/24 Primary care physician: Erick De La Torre DO Consults: 02/18/24 12:05 Consult to Occupational Therapy Evaluate & Treat Comment: Physician Instructions: Evaluate and treat Consult to Physical Therapy Evaluate & Treat Comment: Physician Instructions: Evaluate and Treat Discharge provider: Balwinder Velasquez MD Exam Vital Signs (past 8 hours): Oxygen Delivery Method Room Air Oxygen Flow Rate 0 Objective Labs 02/19/24 04:07 PFSH Medical History (Updated 02/13/24 @ 10:24 by Dedra Velazquez, RN) Anxiety and depression History of PCOS Interstitial cystitis Fibromyalgia Surgical History (Updated 02/13/24 @ 10:06 by Dedra Velazquez RN) Hx of cholecystectomy History of appendectomy H/O: hysterectomy Social History household members: spouse Smoking Status: Never smoker alcohol intake: current Discharge Plan Discharge Plan Patient Disposition: Home Discharge orders & Medications Prescriptions: New acetaminophen 325 mg Tablet 650 mg PO Q6H PRN (Reason: Fever/Mild Pain (1-3)) Qty: 90 0RF polyethylene glycol 3350 17 gram Powder In Packet 17 gm PO DAILY PRN (Reason: Constipation) Qty: 30 0RF hydromorphone 2 mg Tablet 2 mg PO Q4HR PRN (Reason: Pain, Severe (7-10)) Qty: 40 0RF bisacodyl 10 mg Suppository 10 mg GA PRN PRN (Reason: Constipation) Qty: 5 0RF docusate sodium 100 mg Capsule 100 mg PO BID Qty: 60 0RF hydroxyzine HCl 25 mg Tablet 50 mg PO Q6H PRN (Reason: Nausea) Qty: 60 0RF Continued clonazepam [Klonopin] 1 mg Tablet 1 mg PO BID estradiol 1 mg Tablet 1 mg PO DAILY zolpidem [Ambien] 10 mg Tablet 10 mg PO BEDTIME PRN (Reason: insominia) progesterone micronized 100 mg Capsule 100 mg PO QPM tizanidine 2 mg Tablet 2 mg PO TID PRN (Reason: Pain (Scale Score 4-6)) acetaminophen 500 mg Tablet 1,000 mg PO Q6H PRN (Reason: Pain (Scale Score 4-6)) oxycodone-acetaminophen 10-325 mg tablet 1 tab PO Q6H PRN (Reason: pain) ibuprofen 200 mg Tablet 800 mg PO Q8H PRN (Reason: Pain (Scale Score 4-6)) gabapentin 300 mg capsule 300 mg PO 3XD Follow up/Referrals: Erick De La Torre DO [Primary Care Provider] - Diet/Activity/Treatments Diet: Diet as Tolerated Activity: Ambulate multiple times a day. Cold/Heat Therapy: Use ice on spine multiple times a day. Skin/Wound/Dressing Care Report to your healthcare provider any signs of infection, such as:: chills, fever, night sweats, increased pain, unusual drainage and unusual redness Dressing: Leave dressing on. Visit Report/Discharge Packet Instructions: Low Back Pain (Alternative Therapy), DI for Low Back Pain, DI for Laminectomy, DI for Prescription Opioid Use, DI for Transforaminal Lumbar Interbody Fusion Stand Alone Forms: Patient Portal/API, Surgery Discharge Discharge Data Primary Care Provider: Erick De La Torre Quality VTE Deep Vein Thrombosis/Pulmonary Embolism Present on Admission: No
== END 2024-02-22 12:50 | disposition home or self-care (01) | DRG 455 ==
LOC: OR 02-20 12:39 → AC 02-20 12:39
PROVIDERS: Admitting Provider Orthopaedic Surgery Orthopaedic Surgery of the Spine; PCP Family Medicine; Referring Provider Family Medicine; Visit Provider Orthopaedic Surgery Orthopaedic Surgery of the Spine
PROC: 0SG00AJ Fusion of Lumbar Vertebral Joint with Interbody Fusion Device, Posterior Approach, Anterior Column, Open Approach (ICD-10-PCS; principal; 2024-02-18 07:45)
DX: M43.16 Spondylolisthesis, lumbar region (principal); M48.061 Spinal stenosis, lumbar region without neurogenic claudication; M54.16 Radiculopathy, lumbar region; M54.17 Radiculopathy, lumbosacral region; M48.07 Spinal stenosis, lumbosacral region; G89.18 Other acute postprocedural pain
CPT/HCPCS: 36415; 72100; 76000; 81025; 85025; 97116; 97161; 97165; 97530; 97535; A9270; C1713; C9290; J0134; J0330; J0690; J1100; J1170; J2060; J2250; J2405; J2704; J3010; J3410

== ENCOUNTER → 2025-03-08 15:09 | Outpatient (CLI) | payer OTHER, SELFPAY ==
[2024-02-18 12:06] VITALS: BMI 32.1
[2025-03-08 17:05] LABS: Add Manual Diff / Slide Review NO; Hematocrit 42.6 % (36-46); Hemoglobin 14.5 g/dL (12.0-16.0); Lymphocytes Absolute Auto 2300 /uL (1100-4500); Mean Corpuscular HGB Conc 34.1 % (30-36); Mean Corpuscular Hemoglobin 30.7 PG (26-34); Mean Corpuscular Volume 90.0 fL (80-100); Platelet Count 270 X10^3/uL (150-400)
[2025-03-08 17:26] LABS: Alanine Aminotransferase 19 IU/L (<35); Albumin 4.7 g/dL (3.5-5.0); Albumin Globulin Ratio 1.6 (1.0-2.8); Alkaline Phosphatase 76 U/L (38-126); Blood Urea Nitrogen 8 mg/dL (7-17); Calcium 9.5 mg/dL (8.4-10.2); Carbon Dioxide 27 mmol/L (22-32); Chloride 105 mmol/L (98-107); Cholesterol 192 mg/dL (140-199); Estimated Glomerular Filt Rate > 60 mL/min (>60); Globulin 3.0 g/dL (1.7-4.1); Glucose 80 mg/dL (70-99); HEMOLYSIS < 15 (0-50); Potassium 4.3 mmol/L (3.4-5.1); Sodium 139 mmol/L (137-145); Total Protein 7.7 g/dL (6.3-8.2); Triglycerides 72 mg/dL (35-150)
[2025-03-08 17:50] LABS: HDL Cholesterol 120 mg/dL (40-60)
[2025-03-09 23:07] LABS: QuantiFERON Mitogen Value >10.00 IU/mL (.); QuantiFERON Nil Value 0.03 IU/mL (.); QuantiFERON TB Gold Plus Negative (Negative); QuantiFERON TB1 Ag Value 0.06 IU/mL (.); QuantiFERON TB2 Ag Value 0.04 IU/mL (.)
[2025-03-10 04:08] LABS: CRP, High Sensitivity 0.56 mg/L (0.00-3.00)
[2025-03-11 14:36] LABS: ANA Screen, IFA Negative (.)
== END ==
PROVIDERS: PCP Family Medicine; Referring Provider Dermatology; Visit Provider Dermatology
DX: L03.90 Cellulitis, unspecified (principal); Z76.89 Persons encountering health services in other specified circumstances; Z79.899 Other long term (current) drug therapy
CPT/HCPCS: 36415; 80053; 80061; 85025; 85651; 86038; 86140; 86480